=== PATIENT | male | born 1955 | race Caucasian/White ===

== ENCOUNTER 2023-12-02 15:27 | Observation (INO) | payer MEDICARE, OTHER, SELFPAY ==
[2023-12-02] VITALS (9 sets, daily range): BP systolic 123–152; BP diastolic 63–85; PULSE 67–144; RESP 17–24; TEMP 36.6–36.8; O2SAT 93–100; BMI 36.3; BMI 37.3
--- NOTE | 2023-12-02 15:24 | ECG_ITS ---
APPROVED REPORT Exam: Resting ECG HR:157 bpm ECG Measurements Heart Rate 157 AXES QRSd 121 QRS -84 QT 319 T 66 QTc 407 Conclusion ATRIAL FIBRILLATION WITH RAPID VENTRICULAR RESPONSE WITH ABERRANT CONDUCTION OR VENTRICULAR PREMATURE COMPLEXES RIGHT BUNDLE BRANCH BLOCK [120+ ms QRS DURATION, UPRIGHT V1, 40+ ms S IN I/aVL/V4/V5/V6] POSSIBLE ANTERIOR MYOCARDIAL INFARCTION , PROBABLY OLD [30 ms Q WAVE IN V3/V4, OR R < 0.2 mV IN V4] INFERIOR MYOCARDIAL INFARCTION , OF INDETERMINATE AGE [40+ ms Q WAVE AND/OR ST/T ABNORMALITY IN II/aVF] CRITICAL TEST RESULT UNCONFIRMED REPORT Electronically signed by : Jaren Martinez MD 12/03/2023 10:47:01
--- NOTE | 2023-12-02 15:31 | ECG_ITS ---
APPROVED REPORT Exam: Resting ECG HR:127 bpm ECG Measurements Heart Rate 127 AXES QRSd 132 QRS -85 QT 363 T 70 QTc 438 Conclusion ATRIAL FIBRILLATION WITH RAPID VENTRICULAR RESPONSE WITH ABERRANT CONDUCTION OR VENTRICULAR PREMATURE COMPLEXES RIGHT BUNDLE BRANCH BLOCK [120+ ms QRS DURATION, UPRIGHT V1, 40+ ms S IN I/aVL/V4/V5/V6] POSSIBLE ANTERIOR MYOCARDIAL INFARCTION , PROBABLY OLD [30 ms Q WAVE IN V3/V4, OR R < 0.2 mV IN V4] INFERIOR MYOCARDIAL INFARCTION , OF INDETERMINATE AGE [40+ ms Q WAVE AND/OR ST/T ABNORMALITY IN II/aVF] ST DEPRESSION, CONSIDER SUBENDOCARDIAL INJURY [0.1+ mV ST DEPRESSION] ABNORMAL ECG UNCONFIRMED REPORT Electronically signed by : Jaren Martinez MD 12/03/2023 10:46:55
--- NOTE | 2023-12-02 15:33 | XR_ITS ---
FINAL REPORT CLINICAL HISTORY: palpatations COMPARISON: None FINDINGS: The heart size is normal. The mediastinum is normal. There is no focal infiltrate or edema. There are no pleural effusions. There is no pneumothorax. There is no osseous abnormality. IMPRESSION: No acute cardiopulmonary process Reviewed, Interpreted and Dictated by Westley Warren MD Transcribed by Mariajose Hameed Authenticated and . [facility]
--- NOTE | 2023-12-02 15:40 | ECG_ITS ---
APPROVED REPORT Exam: Resting ECG HR:103 bpm ECG Measurements Heart Rate 103 AXES QRSd 144 QRS -89 QT 336 T 66 QTc 396 Conclusion ATRIAL FIBRILLATION WITH RAPID VENTRICULAR RESPONSE RIGHT BUNDLE BRANCH BLOCK [120+ ms QRS DURATION, UPRIGHT V1, 40+ ms S IN I/aVL/V4/V5/V6] INFERIOR MYOCARDIAL INFARCTION , PROBABLY OLD [40+ ms Q WAVE AND/OR ST/T ABNORMALITY IN II/aVF] ABNORMAL ECG UNCONFIRMED REPORT Electronically signed by : Jaren Martinez MD 12/03/2023 10:46:50
[2023-12-02 15:43] LABS: Basophils # 0.1 K/mm3 (0-0.2); Basophils % 0.7 % (0.1-2.0); Eosinophils # 0.1 K/mm3 (0.0-0.4); Eosinophils % 0.8 % (0.1-12.0); Hematocrit 52.8 % (42.0-52.0); Hemoglobin 17.7 g/dL (14.1-18.0); Lymphocytes # 2.8 K/mm3 (0.7-4.5); Lymphocytes % 23.6 % (10-50); Mean Corpuscular HGB Conc 33.6 g/dL (31.8-35.4); Mean Corpuscular Hemoglobin 30.7 pg (27.0-31.2); Mean Corpuscular Volume 91.4 fl (80-94); Mean Platelet Volume 8.2 fl (7.4-10.4); Monocytes # 0.7 K/mm3 (0.1-1.0); Monocytes % 5.7 % (1.7-9.3); Neutrophils # 8.2 K/mm3 (1.8-7.8); Neutrophils % 69.2 % (37.0-80.0); Platelet Count 234 K/mm3 (142-424); Red Blood Count 5.78 M/mm3 (4.60-6.20); Red Cell Distribution Width 14.2 % (11.5-17.5); White Blood Count 11.9 K/mm3 (4.8-10.8)
[2023-12-02] MEDS: dilTIAZem 25MG/5ML VIAL 10 MG IV (15:43)
[2023-12-02] MEDS: ASPIRIN 81MG CHEWABLE TABLET 324 MG PO (15:43)
--- NOTE | 2023-12-02 15:43 | ED_ITS ---
Discharge Plan Disposition Patient Disposition: Admitted Condition: Good Chief Complaint: Shortness of Breath/Dyspnea Clinical Impressions Clinical Impression: New onset a-fib, Atrial fibrillation with rapid ventricular response Discharge ED Provider: Jennifer Naylor HPI General Chief Complaint: Shortness of Breath/Dyspnea Stated Complaint: CHEST TIGHTNESS Time Seen by Provider: 12/02/23 15:32 Mode of Arrival: Ambulatory Source of Information: Patient and Spouse Limitations: No Limitations History of Present Illness HPI narrative: Patient is a 68-year-old male with past medical history diabetes, GERD, hypertension presenting with shortness of breath, presyncope and feeling unce rtain . Patient states that he was out to lunch with his and they were driving back from [place] when he felt very uncomfortable and short of breath. They diverted here for continued symptoms and thought his blood pressure might be abnormal. He does have a history of 1 similar episode that self resolved and for which he never did seek medical care. He did follow-up with a supervisor of instruction who told him that he may have an irregular heartbeat and was scheduled for a stress test and echo but has not yet had them yet with Dr. Chen at [place]. He was also told that his heart rate was low and was taken off of his metoprolol and put on hydralazine instead for blood pressure. He denies any known history of A-fib and has never been told that he has A-fib and is not on any blood thinners or aspirin. He denies specifically any chest pain, abdominal pain, nausea, vomiting but did elect that he was going to pass out and walking to the stretcher. Related Data Home Medications Medication Instructions Recorded Confirmed amlodipine 10 mg tablet 10 mg PO QDAY 10/12/17 10/23/19 meloxicam 15 mg tablet 15 mg PO QDAY 10/12/17 10/23/19 metformin 500 mg tablet 500 mg PO BID 10/12/17 10/23/19 metoprolol tartrate 50 mg tablet 50 mg PO QDAY 10/12/17 10/23/19 omeprazole 40 mg capsule,delayed 40 mg PO ONCE 10/12/17 10/23/19 release simvastatin 40 mg tablet 40 mg PO QPM 10/12/17 10/23/19 cyclobenzaprine 10 mg tablet 10 mg PO 60 days 09/26/18 10/23/19 hydralazine 100 mg tablet 100 mg PO 90 days 09/26/18 10/23/19 hydrochlorothiazide 25 mg tablet 25 mg PO 90 days 09/26/18 10/23/19 oxybutynin chloride 10 mg PO 90 days #90 tabs 09/26/18 10/23/19 tablet,extended release 24 hr tolterodine 4 mg capsule,extended PO 90 days #90 caps 09/26/18 10/23/19 release 24 hr fluticasone propionate 50 1 spray intranasal DAILY 12/19/18 10/23/19 mcg/actuation nasal spray,suspension (Flonase Allergy Relief) cetirizine 10 mg tablet 10 mg PO DAILY 10/15/19 10/23/19 losartan 100 mg tablet 100 mg PO DAILY 10/15/19 10/23/19 metformin 1,000 mg tablet 1,000 mg PO DAILY 10/15/19 10/23/19 montelukast 10 mg tablet 10 mg PO DAILY 10/15/19 10/23/19 Previous Rx's Medication Instructions Recorded benzonatate 200 mg capsule 200 mg PO TID PRN cough #20 caps 10/15/19 amoxicillin 500 mg capsule 500 mg PO Q12H sinusitis and 10/23/19 otitis media 10 days #20 caps Allergies Allergy/AdvReac Type Severity Reaction Status Date / Time lisinopril Allergy Mild cough Verified 10/23/19 13:00 codeine [CODEINE] Allergy Unknown Verified 10/23/19 12:54 [facility] Disclaimer: The information contained in this section may have been updated after the patient was seen, as this information can be updated by other users. Social History Smoking Status: Never smoker alcohol intake: current substance use type: denies use current occupational status: retired Travel in the last 8 weeks: None ROS Obtained: Yes All systems reviewed & no additional complaints except as documented Physical Exam General General appearance: alert and in no apparent distress Head Head exam: atraumatic and normocephalic Eye Eye exam: Present PERRL and EOMI ENT ENT exam: Present mucous membranes moist Chest Chest inspection: Present normal inspection and symmetric chest wall rise Respiratory Respiratory exam: Present normal lung sounds bilaterally; Absent respiratory distress Cardiovascular Cardiovascular exam: Present tachycardia, irregular rhythm and other (2+ distal pulses) Abdominal Exam Abdominal exam: Present soft; Absent tenderness Extremities Exam Extremities exam: Present normal inspection Neurological Exam Neurological exam: Present alert and oriented X3 Psychiatric Psychiatric exam: Present normal affect Skin Skin exam: Present warm and dry HEART Score HEART Score HEART Score assessment performed?: Yes HEART Score: 6 Critical Care Critical Care Time Critical Care Time: No Medical Decision Making Medical Records Medical records reviewed: Yes I reviewed the patient's medical records. Orestes Inquiry Pt receiving controlled substance: No Vital Signs Vital Signs: 12/02/23 15:28 12/02/23 16:00 12/02/23 16:30 Temperature 97.9 F Temperature Source Oral Pulse Rate 91 H 87 Pulse Rate [Left] 144 H Respiratory Rate 20 24 17 Blood Pressure 140/70 123/72 Blood Pressure [Right Arm] 133/68 Blood Pressure Mean [Right Arm] 89 Blood Pressure Source [Right Arm] Automatic Cuff 02 Sat by Pulse Oximetry 96 96 95 Oxygen Delivery Method Room Air Room Air Room Air Lab Data Lab results reviewed: Yes I reviewed the patient's lab results. Labs: Lab Results 12/02/23 15:25: WBC 11.9 H, RBC 5.78, Hgb 17.7, Hct 52.8 H, MCV 91.4, MCH 30.7, MCHC 33.6, RDW 14.2, Plt Count 234, MPV 8.2, Neut % (Auto) 69.2, Lymph % (Auto) 23.6, [place] % (Auto) 5.7, Eos % (Auto) 0.8, Baso % (Auto) 0.7, Neut # (Auto) 8.2 H, Lymph # (Auto) 2.8, [place] # (Auto) 0.7, Eos # (Auto) 0.1, Baso # (Auto) 0.1, Sodium 139, Potassium 3.3 L, Chloride 108 H, Carbon Dioxide 21 L, Anion Gap 13.3, BUN 12, Creatinine 1.20, Estimated GFR 60, Est GFR ( Amer) 72, Glucose 281 H, Calcium 9.2, Total Bilirubin 1.2, AST 32, ALT 31, Alkaline Phosphatase 74, Troponin I < 0.01, Total Protein 7.1, Albumin 4.7, Globulin 2.4, Albumin/Globulin Ratio 2.0 H 12/02/23 15:25 12/02/23 15:25 Response Orders (Tests/Meds): ED MEDICATIONS Generic Name Dose Route Start Last Admin Trade Name Freq PRN Reason Stop Dose Admin Diltiazem HCl 60 mg 12/02/23 16:45 Diltiazem 30mg Tablet PO 01/01/24 16:44 Q8H JOSEY Enoxaparin Sodium 125 mg 12/02/23 16:45 Enoxaparin 100mg/Ml Syringe 1 mg/kg (125 mg) 01/01/24 16:44 SQ Q12H JOSEY Sodium Chloride 10 ml 12/02/23 15:33 Sodium Chloride 0.9% 10ml Flush Syringe IV 01/01/24 15:32 NEEDED PRN Maintain IV Site Discontinued Medications Generic Name Dose Route Start Last Admin Trade Name Freq PRN Reason Stop Dose Admin Aspirin 324 mg 12/02/23 15:33 12/02/23 15:43 Aspirin 81mg Chewable Tablet PO 12/02/23 15:34 324 mg ONCE ONE Administration Diltiazem HCl 10 mg 12/02/23 15:33 12/02/23 15:43 Diltiazem 25mg/5ml Vial IV 12/02/23 15:34 10 mg ONCE ONE Administration ORDERS Category Date Time Status Cardiology Consult [Consult to Cardiology] [CONS] Cons 12/02/23 16:45 Active Routine XR chest portable Stat Exams 12/02/23 15:33 Completed Complete Blood Count Auto Diff AMLAB Lab 12/03/23 06:00 Ordered Complete Blood Count Auto Diff Stat Lab 12/02/23 15:25 Completed Comprehensive Metabolic Panel AMLAB Lab 12/03/23 06:00 Ordered Comprehensive Metabolic Panel Stat Lab 12/02/23 15:25 Completed Lipid Panel AMLAB Lab 12/03/23 06:00 Ordered Magnesium AMLAB Lab 12/03/23 06:00 Ordered Troponin I Q3H Lab 12/02/23 18:45 Ordered Troponin I Q3H Lab 12/02/23 21:45 Ordered Troponin I Stat Lab 12/02/23 15:25 Completed ECG initial Besson Routine Y 12/02/23 15:24 Completed ECG repeat same Besson Routine Y 12/02/23 15:31 Completed MDM Narrative Medical Decision Narrative: Patient is a 68-year-old male with past medical history diabetes, hypertension, reportedly being worked up for cardiac abnormality presenting with feeling uncomfortable and presyncopal as well as short of breath. Patient on arrival does appear uncomfortable and was noted to be presyncopal when he was ambulating to the stretcher that he did not pass out. He has GCS 15 on arrival but notably tachycardic in the 150s but otherwise hemodynamically stable. We did an EKG at bedside showing a heart rate of 157 and concern for A-fib with RVR he does have a right bundle branch block and there was concern for possible ST depression on the EKG and was sent to Dr. Walls who states that it does not appear consistent with a STEMI. Proceeded with repeat EKG as rate seems to be changing and repeat EKG showing rate of 127 with continued A-fib with RVR, right bundle branch block and occasional PVC without acute ST change and was comparable to prior. I did give 10 of Cardizem given patient's symptoms and acute tachycardia and given that he was otherwise hemodynamically stable especially considering his history of possible irregular heartbeat in the past and he is not on anticoagulation. He did have improvement in his cardiac rate on the third EKG with a rate of 103, continues to have A-fib with occasional PVC and right bundle branch block without acute ischemia or infarction noted. Will obtain labs and imaging for further evaluation. CBC and CMP were nonactionable, troponin negative. EKG did show improvement in rate control but he continues to fluctuate between the 80s to 90s to low 100s. I am concerned that this was an acute cardiac event that started just prior to arrival and with new onset A-fib and I did speak with was agreeable with admission at this time.
[2023-12-02 15:46] LABS: Chloride 108 mmol/L (98-107); Potassium 3.3 mmoL/L (3.5-5.1); Sodium 139 mmol/L (136-145)
[2023-12-02 15:49] LABS: Alanine Aminotransferase 31 U/L (12-78); Albumin Level 4.7 g/dl (3.5-5.0); Alkaline Phosphatase 74 U/L (38-126); Anion Gap 13.3 mEq/L (5-15); Aspartate Amino Transferase 32 U/L (17-59); Bilirubin,Total 1.2 mg/dl (0.2-1.3); Blood Urea Nitrogen 12 mg/dl (9-20); Carbon Dioxide 21 mmol/L (22.0-30.0); Estimated Glomerular Filt Rate 60 ml/min (>60); GFR (African American) 72 ML/MIN (>60); Globulin 2.4 g/dL (1.3-3.2); Total Protein,Serum 7.1 g/dl (6.3-8.2)
[2023-12-02 15:50] LABS: Calcium 9.2 mg/dl (8.4-10.2); Glucose 281 mg/dl (74-100)
[2023-12-02 16:02] LABS: Troponin I < 0.01 ng/ml (0.00-0.034)
--- NOTE | 2023-12-02 16:45 | PC.NURSE ---
speaking with hospitalist
--- NOTE | 2023-12-02 16:51 | PC.NURSE ---
House aware of admission for new onset of A-fib with RVR
--- NOTE | 2023-12-02 17:24 | PC.NURSE ---
Attempted to call report nurse states they will call back.
--- NOTE | 2023-12-02 17:37 | PC.NURSE ---
Report called to KALPESH Lopez
--- NOTE | 2023-12-02 17:42 | PC.NURSE ---
rounded on pt let him know we have a room number, nurse just needed to call report and we would get him to his room shortly and call light at bs
[2023-12-02 17:56] LABS: Hemoglobin A1C 6.4 % (4.0-6.0)
[2023-12-02] MEDS: ENOXAPARIN 100MG/ML SYRINGE 125 MG SQ (18:05)
[2023-12-02] MEDS: dilTIAZem 30MG TABLET 60 MG PO (18:06)
[2023-12-02 18:19] LABS: Thyroid Stimulating Hormone 1.92 uIU/mL (0.465-4.68)
--- NOTE | 2023-12-02 18:23 | PC.NURSE ---
Pt. to the floor vss, no pain at this time, aox 4, upadlib, reports no recent falls, lungs are clear, bs x 4, 20G R AC, on tele and cpox.
--- NOTE | 2023-12-02 19:29 | P.HP_ITS ---
History of Present Illness *Admission Date: 12/02/23 *Reason for visit:: Chest thighness *History of present illness: This is a 68-year-old obese male with PMHx of NIDDM, GERD, hypertension, HLD presented to ED with shortness of breath and chest discomfort, with presyncope symptoms. Patient stated that he was having a normal day and when driving back home he felt very uncomfortable and short of breath. Thought his blood pressure might be abnormal, therefore decided to come to ED. He does have a history of 1 similar episode that self resolved and for which he never did seek medical care. Patient has been followed by his perianesthesia manager, Dr. Chen at [place]; who told him that he may have an irregular heartbeat and was scheduled for a stress test and echo that still pending. He was recently taken off of his metoprolol, due to low heart rate and put on hydralazine instead for blood pressure. He denies any known history of A-fib and has never been told that he has A-fib and is not on any blood thinners or aspirin. He denies specifically any chest pain, abdominal pain, nausea, vomiting. Admitted for management and treatment. [facility] Disclaimer: The information contained in this section may have been updated after the patient was seen, as this information can be updated by other users. Medical History History of left heart catheterization (LHC) Hyperlipidemia Hypertension Surgical History H/O vasectomy H/O wrist replacement History of colonoscopy History of tonsillectomy Family History Other No significant family history Social History Smoking Status: Never smoker alcohol intake: current substance use type: denies use current occupational status: retired Travel in the last 8 weeks: None Review of Systems Review of Systems Review of systems:: pertinent systems reviewed and negative unless documented below Meds Home Medications and Allergies Home Medications Medication Instructions Recorded Confirmed Type omeprazole 40 mg capsule,delayed 40 mg PO DAILY Acid Reflux 10/12/17 12/03/23 History release simvastatin 40 mg tablet 40 mg PO HS Cholesterol 10/12/17 12/03/23 History oxybutynin chloride 10 mg 10 mg PO DAILY 90 days #90 tabs 09/26/18 12/03/23 History tablet,extended release 24 hr metformin 1,000 mg tablet 1,000 mg PO BID Diabetes 10/15/19 12/03/23 History citalopram 20 mg tablet 20 mg PO DAILY Mood 12/02/23 12/03/23 History fluticasone furoate 27.5 1 spray intranasal DAILY Allergy 12/02/23 12/03/23 History mcg/actuation nasal Symptoms spray,suspension (Flonase Sensimist) furosemide 40 mg tablet 40 mg PO DAILY Fluid 12/02/23 12/03/23 History levocetirizine 5 mg tablet 5 mg PO DAILY Allergy Symptoms 12/02/23 12/03/23 History montelukast 10 mg tablet 10 mg PO PM Allergy Symptoms 12/02/23 12/03/23 History topiramate 50 mg tablet 50 mg PO BID Migraines 12/02/23 12/03/23 History diltiazem HCl 180 mg 180 mg PO DAILY 30 days #30 caps 12/03/23 Rx capsule,extended release 24 hr losartan 100 mg tablet 50 mg PO HS High Blood Pressure 30 12/03/23 12/03/23 Rx days #0 tabs rivaroxaban 20 mg tablet 20 mg PO HS 30 days #30 tabs 12/03/23 Rx New Prescriptions to Start Prescriptions: diltiazem HCl Ousmane Gutierrez rivaroxaban Ousmane Gutierrez Allergies Allergy/AdvReac Type Severity Reaction Status Date / Time codeine [CODEINE] Allergy Unknown Verified 12/02/23 18:26 lisinopril AdvReac Mild cough Verified 12/02/23 22:16 Exam Data for Last 24 hours Vital signs and Labs for Last 24 Hours: Temp Pulse Resp BP Pulse Ox O2 Del Method O2 Flow Rate 98.2 F 67 18 150/66 H 100 Room Air 2 12/02/23 18:06 12/02/23 18:06 12/02/23 18:06 12/02/23 18:06 12/02/23 18:06 12/02/23 18:06 12/02/23 17:58 Laboratory Results - last 24 hr 12/02/23 15:25: WBC 11.9 H, RBC 5.78, Hgb 17.7, Hct 52.8 H, MCV 91.4, MCH 30.7, MCHC 33.6, RDW 14.2, Plt Count 234, MPV 8.2, Neut % (Auto) 69.2, Lymph % (Auto) 23.6, [place] % (Auto) 5.7, Eos % (Auto) 0.8, Baso % (Auto) 0.7, Neut # (Auto) 8.2 H, Lymph # (Auto) 2.8, [place] # (Auto) 0.7, Eos # (Auto) 0.1, Baso # (Auto) 0.1, Sodium 139, Potassium 3.3 L, Chloride 108 H, Carbon Dioxide 21 L, Anion Gap 13.3, BUN 12, Creatinine 1.20, Estimated GFR 60, Est GFR ( Amer) 72, Glucose 281 H, Hemoglobin A1c 6.4 H, Calcium 9.2, Total Bilirubin 1.2, AST 32, ALT 31, Alkaline Phosphatase 74, Troponin I < 0.01, Total Protein 7.1, Albumin 4.7, Globulin 2.4, Albumin/Globulin Ratio 2.0 H, TSH 1.92 I & O for Last 24 hours: Intake & Output 11/29/23 11/30/23 12/01/23 12/02/23 23:59 23:59 23:59 23:59 Weight 128.593 kg Constitutional Constitutional: mild distress, obese and cooperative *Routine HEENT Exam Head: Present normocephalic and atraumatic Eye: Present EOMI, PERRL and normal accommodation ENT: Present mucous membranes moist *Routine Neck Exam Neck: Present supple, full ROM and trachea midline *Routine Respiratory Exam Respiratory: Present CTA bilaterally, normal respiratory effort and symmetric chest movement; Absent respiratory distress *Routine Cardiovascular Exam Cardiovascular: Present Normal S1, Normal S2, tachycardia and irregularly irregular *Routine Abdominal Exam Abdominal: Present soft, normoactive bowel sounds and obese; Absent tenderness or organomegaly *Routine Rectal Exam Rectal:: deferred *Routine Genitalia Exam Genitalia:: deferred *Routine Extremities Exam Extremities: Present full ROM and pulses intact; Absent cyanosis, clubbing or edema *Routine Skin Exam Skin: Present intact, dry and warm; Absent rash *Routine Neurological Exam Neurological: Present alert, oriented X3, normal reflexes, moving all extremities and normal speech Routine Psychiatric Exam Psychiatric: Present cooperative, good insight and good judgment H&P: Result Imaging and Cardiology EKG: Status: image reviewed by me and Preliminary report Chest x-ray: Status: image reviewed by me, Preliminary report and final report Assessment and Plan *Assessment and plan (1) New onset a-fib: Status: Acute Category: Medical Code(s): I48.91 - Unspecified atrial fibrillation (2) Atrial fibrillation with rapid ventricular response: Status: Acute Category: Medical Code(s): I48.91 - Unspecified atrial fibrillation (3) Hypertension: Status: Acute Qualifiers: Hypertension type: unspecified Qualified Code(s): I10 - Essential (primary) hypertension Category: Medical Code(s): I10 - Essential (primary) hypertension (4) Hyperlipidemia: Status: Acute Qualifiers: Hyperlipidemia type: unspecified Qualified Code(s): E78.5 - Hyperlipidemia, unspecified Category: Medical Code(s): E78.5 - Hyperlipidemia, unspecified (5) Diabetes mellitus: Status: Acute Qualifiers: Diabetes mellitus complication status: with other specified complication Diabetes mellitus terminal operations manager insulin use: without prison use Diabetes mellitus type: type 2 Qualified Code(s): E11.69 - Type 2 diabetes mellitus with other specified complication Category: Medical Code(s): E11.9 - Type 2 diabetes mellitus without complications (6) Obesity: Status: Acute Qualifiers: Body mass index: BMI 37.0-37.9 Obesity classification: adult class 2 (BMI 35 - 39.9) Obesity type: unspecified obesity type Serious obesity comorbidity presence: unspecified whether serious comorbidity present Qualified Code(s): E66.9 - Obesity, unspecified; Z68.37 - Body mass index [BMI] 37.0- 37.9, adult Category: Medical Code(s): E66.9 - Obesity, unspecified Plan 68-year-old obese male with PMHx of NIDDM, GERD, hypertension, HLD presented to ED with shortness of breath and chest discomfort, with presyncope symptoms. On arrival, patient presented with tachycardia, atrial fibrillation. Heart rate in the 150s'. IV Cardizem push given. EKG does not show any ST changes. There was a concern for right bundle block. Labs are grossly unremarkable, troponins are negative. patient was able to control his heart rate, but continue on atrial fibrillation. Case discussed with cardiology and ER for admission. Plan as follow -New onset A-fib with RVR: Admitted for cardiac telemetry. Cardiology consult. Keep n.p.o. after midnight for possible cardiac intervention Started on Cardizem extended release. Initial dose 120 mg p.o. Continue with 60 twice daily Monitor heart rate and rhythm Monitor for chest pain Serial troponin. They are negative Repeat labs in the morning Aspirin 324 mg given at the ER. Continue with 81 mg daily -Hypertension hyperlipidemia: Patient on several medication for hypertension. Including hydralazine 50 mg twice a day Amlodipine 10 mg once a day losartan 100 mg once a day Furosemide 40 mg once a day Will are going to hold blood pressure medications, for review and reconsideration. On simvastatin -Diabetes type 2 [id number]. Hold metformin Accu-Chek before meals Insulin scale for support -History of obesity: Will increase cardiac risk score. Educated on weight management On Lovenox full dose. On Protonix for GI bleed protection and GERD Full code Rounded on patient after nurse practitioner. Personally examined and interviewed patient. Agree with exam findings and care plan as documented.
[2023-12-02 20:24] LABS: Troponin I < 0.01 ng/ml (0.00-0.034)
[2023-12-02] MEDS: OXYBUTYNIN 5MG TAB 5 MG PO (20:35)
[2023-12-02] MEDS: ACETAMINOPHEN 325MG TAB 650 MG PO (20:35)
[2023-12-02 20:45] LABS: POC Glucose,Bedside 139 (70-110)
[2023-12-02 22:18] LABS: Troponin I < 0.01 ng/ml (0.00-0.034)
[2023-12-03] VITALS: BP 96/59; PULSE 62; PULSE 68; RESP 20; TEMP 36.4; O2SAT 97
[2023-12-03] MEDS: dilTIAZem 30MG TABLET 60 MG PO (01:01)
[2023-12-03 04:00] VITALS: BP 154/88; PULSE 67; RESP 16; TEMP 36.6; O2SAT 93; BMI 37.2
[2023-12-03 05:00] VITALS: PULSE 70
[2023-12-03] MEDS: ENOXAPARIN 100MG/ML SYRINGE 125 MG SQ (05:05)
[2023-12-03 05:59] LABS: POC Glucose,Bedside 136 (70-110)
[2023-12-03] MEDS: POTASSIUM CHLORIDE 20MEQ TAB 40 MEQ PO ×2 (05:59→08:39)
--- NOTE | 2023-12-03 06:00 | CA_ITS ---
APPROVED REPORT EXAM: Comprehensive 2D, Doppler, and color-flow Echocardiogram Corn Cutter Operator: Merlyn Jones RDCS Ht: 6 ft 1 in Wt: 275lbs BSA: 2.46 BP: 150/66 mmHg Indications: CP,AF,HTN,HLP.DM,SOA M-Mode Dimensions RVDd 4.15 cm (0.9-2.6) LA Diam 4.51 cm (1.9-4.0) LVDd 6.83 cm (3.5-5.7) LVDs 5.22 cm (3.5-5.7) IVSd 1.29 cm (0.6-1.1) PWd 0.80 cm (0.6-1.1) EF (Teich) 45.90% FS 23.60% EDV (Teich) 241.60 mL ESV (Teich) 130.70 mL LV Diastology E Decel Time 280 (160-240 msec) E/A Ratio 0.6 Mitral Valve MV E Max Shaheen. 54.0 (40-130 cm/s) MV A Velocity 84.0 (40-130 cm/s) E/A Ratio 0.64 MV PHT 82.0 ms Left Ventricle The left ventricle is normal size. The left ventricular systolic function is normal. The left ventricular ejection fraction is within the normal range. There is increased LV wall thickness. There is normal LV segmental wall motion. Transmitral Doppler flow pattern suggests impaired LV relaxation. LVEF is 55%. Right Ventricle The right ventricle is normal size. The right ventricular systolic function is normal. Atria The left atrium size is normal. The right atrium size is normal. There is no Doppler evidence of interatrial shunt. Aortic Valve The aortic valve opens well. There is no aortic valvular stenosis. No aortic regurgitation is present. Mitral Valve The mitral valve is normal in structure. No evidence of mitral valve stenosis. Trace mitral regurgitation. Tricuspid Valve The tricuspid valve leaflets are thin and pliable. Trace tricuspid regurgitation. There is insufficient TR jet to estimate RVSP. Pulmonic Valve The pulmonary valve is normal in structure. Trace pulmonic regurgitation. Great Vessels The aortic root is normal in size. The ascending aorta is not well visualized. IVC is normal in size and collapses >50% with inspiration. Pericardium There is no pericardial effusion. Other Information Study Quality: Fair Conclusion Normal biventricular systolic function. No significant valvular stenosis or regurgitation. Electronically signed by : Kayla Thompson MD 12/05/2023 17:57:23
--- NOTE | 2023-12-03 06:36 | PC.NURSE ---
pt has worn 1LNC PRN t/o night r/t O2 88/89%. NPO since midnight. no acute changes.
[2023-12-03 06:54] LABS: Basophils % 0.5 % (0.1-2.0); Eosinophils # 0.1 K/mm3 (0.0-0.4); Eosinophils % 1.2 % (0.1-12.0); Hematocrit 44.7 % (42.0-52.0); Lymphocytes # 2.7 K/mm3 (0.7-4.5); Lymphocytes % 34.1 % (10-50); Mean Corpuscular HGB Conc 34.1 g/dL (31.8-35.4); Mean Corpuscular Hemoglobin 31.6 pg (27.0-31.2); Mean Corpuscular Volume 92.8 fl (80-94); Mean Platelet Volume 7.9 fl (7.4-10.4); Monocytes # 0.4 K/mm3 (0.1-1.0); Monocytes % 5.2 % (1.7-9.3); Neutrophils # 4.6 K/mm3 (1.8-7.8); Platelet Count 172 K/mm3 (142-424); Red Blood Count 4.82 M/mm3 (4.60-6.20); White Blood Count 7.8 K/mm3 (4.8-10.8)
[2023-12-03 06:57] LABS: Chloride 111 mmol/L (98-107)
[2023-12-03 06:58] LABS: Potassium 3.2 mmoL/L (3.5-5.1)
[2023-12-03 07:00] LABS: Alanine Aminotransferase 18 U/L (12-78); Aspartate Amino Transferase 21 U/L (17-59); Blood Urea Nitrogen 14 mg/dl (9-20); Creatinine Clearance Estimated 113 mL/min (50-200); Estimated Glomerular Filt Rate 66 ml/min (>60); GFR (African American) 80 ML/MIN (>60)
[2023-12-03 07:01] LABS: Albumin Level 3.6 g/dl (3.5-5.0); Albumin/Globulin Ratio 1.6 (1.1-1.8); Alkaline Phosphatase 66 U/L (38-126); Anion Gap 5.2 mEq/L (5-15); Calcium 8.6 mg/dl (8.4-10.2); Carbon Dioxide 27 mmol/L (22.0-30.0); Chol/HDL Ratio 4.4 (1-3.5); Cholesterol 97 mg/dl (140-200); Globulin 2.2 g/dL (1.3-3.2); Glucose 131 mg/dl (74-100); HDL Cholesterol 22 mg/dl (40-60); Magnesium 1.6 mg/dl (1.6-2.3); Sodium 140 mmol/L (136-145); Total Protein,Serum 5.8 g/dl (6.3-8.2); Triglycerides 124 mg/dl (30-150); VLDL Cholesterol 25 mg/dL (0-40)
[2023-12-03 07:04] LABS: Hemoglobin 15.2 g/dL (14.1-18.0)
[2023-12-03 07:18] LABS: Direct LDL Cholesterol 61.51 mg/dL (100-129)
--- NOTE | 2023-12-03 07:46 | HMH.PHAINT1 ---
Pharmacy Intervention Comments: MEDICATION RECONCILIATION COMPLETED ON PATIENT USING EXTERNAL FILL HISTORY FROM PHARMACY. -CATALINA WILSON, SELIND
[2023-12-03 08:00] VITALS: BP 122/63; PULSE 65; PULSE 70; RESP 22; TEMP 36.5; O2SAT 97
[2023-12-03] MEDS: dilTIAZem HCL 180MG CAP.ER.24H 180 MG PO (08:39)
[2023-12-03] MEDS: ASPIRIN EC 81MG TABLET 81 MG PO (08:39)
[2023-12-03] MEDS: LORATADINE 10MG TABLET 10 MG PO (08:39)
[2023-12-03] MEDS: TOPIRAMATE 25MG TABLET 50 MG PO (08:39)
[2023-12-03] MEDS: OXYBUTYNIN 5MG TAB 5 MG PO (08:39)
[2023-12-03] MEDS: CITALOPRAM 20MG TABLET 20 MG PO (08:39)
[2023-12-03] MEDS: FUROSEMIDE 40 MG TABLET PO (08:39)
--- NOTE | 2023-12-03 09:51 | ECG_ITS ---
APPROVED REPORT Exam: Resting ECG HR:63 bpm ECG Measurements Heart Rate 63 AXES QRSd 133 QRS -58 QT 486 T -18 QTc 494 Conclusion ATRIAL FIBRILLATION RIGHT BUNDLE BRANCH BLOCK [120+ ms QRS DURATION, UPRIGHT V1, 40+ ms S IN I/aVL/V4/V5/V6] LEFT ANTERIOR FASCICULAR BLOCK [QRS AXIS <= -45, QR IN I, RS IN II] INFERIOR MYOCARDIAL INFARCTION , PROBABLY OLD [40+ ms Q WAVE AND/OR ST/T ABNORMALITY IN II/aVF] MODERATE T-WAVE ABNORMALITY, CONSIDER LATERAL ISCHEMIA [-0.1+ mV T-WAVE IN I/aVL/V5/V6] ABNORMAL ECG UNCONFIRMED REPORT Electronically signed by : Jaren Martinez MD 12/04/2023 12:38:08
[2023-12-03 10:49] LABS: POC Glucose,Bedside 145 (70-110)
[2023-12-03 12:00] VITALS: BP 119/60; PULSE 65; RESP 20; TEMP 36.4; O2SAT 92
--- NOTE | 2023-12-03 12:00 | P.CONCA_ITS ---
History of Present Illness History of Present Illness Consult date: 12/03/23 Requesting physician: Ousmane Gutierrez Consult reason: atrial fibrillation Chief complaint: Chest pain palpitations History of present illness: 68-year-old white male without known cardiovascular disease but risk factors including BMI 37, obstructive sleep apnea, hypertension, obesity, high cholesterol, diabetes. Recently evaluated by a print finishing worker in [place] for dyspnea on exertion and palpitations with near syncope. He has stress test and echo pending. That print finishing worker also discontinued beta-blockers due to asymptomatic heart rate in the 40s. Yesterday patient reports gradual onset worsening significant chest discomfort with fluttering sensation in his chest associated with near syncope. In the ER he was found to be in A-fib RVR with heart rate 150s. He was admitted and started on diltiazem and his rate controlled this morning and completely asymptomatic. EKG shows sinus rhythm without ischemic changes, he has normal serial troponins. [facility] Disclaimer: The information contained in this section may have been updated after the patient was seen, as this information can be updated by other users. Medical History History of left heart catheterization (LHC) Hyperlipidemia Hypertension Surgical History H/O vasectomy H/O wrist replacement History of colonoscopy History of tonsillectomy Family History Other No significant family history Social History Smoking Status: Never smoker alcohol intake: current substance use type: denies use current occupational status: retired Travel in the last 8 weeks: None Review of Systems Constitutional Constitutional: Denies fatigue and Denies weakness Eyes Eyes: Denies loss of vision ENT Ears, Nose, Mouth, and Throat: Denies hearing loss and Denies vertigo *Cardiovascular Cardiovascular: Reports chest pain, Denies dyspnea, Reports palpitations and Denies syncope *Respiratory Respiratory: Denies cough and Denies dyspnea *Gastrointestinal Gastrointestinal: Denies change in stool character, Denies nausea and Denies vomiting *Genitourinary Genitourinary: Denies difficulty urinating *Musculoskeletal Musculoskeletal: Denies muscle weakness Integumentary/Breasts Skin/Breast: Denies changing lesions *Neurologic Neurologic: Denies loss of vision, Denies syncope, Denies vertigo and Denies weakness Endocrine Endocrine: Denies fatigue and Reports palpitations Exam Data for Last 24 hours Vital signs and Labs for Last 24 Hours: Temp Pulse Resp BP Pulse Ox O2 Del Method O2 Flow Rate 97.7 F 65 22 122/63 97 Nasal Cannula 1 12/03/23 08:00 12/03/23 08:00 12/03/23 08:00 12/03/23 08:00 12/03/23 08:00 12/03/23 10:15 12/03/23 10:15 Laboratory Results - last 24 hr 12/02/23 15:25: WBC 11.9 H, RBC 5.78, Hgb 17.7, Hct 52.8 H, MCV 91.4, MCH 30.7, MCHC 33.6, RDW 14.2, Plt Count 234, MPV 8.2, Neut % (Auto) 69.2, Lymph % (Auto) 23.6, [place] % (Auto) 5.7, Eos % (Auto) 0.8, Baso % (Auto) 0.7, Neut # (Auto) 8.2 H, Lymph # (Auto) 2.8, [place] # (Auto) 0.7, Eos # (Auto) 0.1, Baso # (Auto) 0.1, Sodium 139, Potassium 3.3 L, Chloride 108 H, Carbon Dioxide 21 L, Anion Gap 13.3, BUN 12, Creatinine 1.20, Estimated GFR 60, Est GFR ( Amer) 72, Glucose 281 H, Hemoglobin A1c 6.4 H, Calcium 9.2, Total Bilirubin 1.2, AST 32, ALT 31, Alkaline Phosphatase 74, Troponin I < 0.01, Total Protein 7.1, Albumin 4.7, Globulin 2.4, Albumin/Globulin Ratio 2.0 H, TSH 1.92 12/02/23 18:57: Troponin I < 0.01 12/02/23 20:33: POC Glucose 139 H 12/02/23 20:40: Troponin I < 0.01 12/03/23 04:56: POC Glucose 136 H 12/03/23 06:13: WBC 7.8 D, RBC 4.82, Hgb 15.2 D, Hct 44.7, MCV 92.8, MCH 31.6 H, MCHC 34.1, RDW 14.0, Plt Count 172 D, MPV 7.9, Neut % (Auto) 59.0, Lymph % (Auto) 34.1, [place] % (Auto) 5.2, Eos % (Auto) 1.2, Baso % (Auto) 0.5, Neut # (Auto) 4.6, Lymph # (Auto) 2.7, [place] # (Auto) 0.4, Eos # (Auto) 0.1, Baso # (Auto) 0.0, Sodium 140, Potassium 3.2 L, Chloride 111 H, Carbon Dioxide 27, Anion Gap 5.2, BUN 14, Creatinine 1.10, Estimated Creat Clear 113, Estimated GFR 66, Est GFR ( Amer) 80, Glucose 131 H D, Calcium 8.6, Magnesium 1.6, Total Bilirubin 1.0, AST 21 D, ALT 18 D, Alkaline Phosphatase 66, Total Protein 5.8 L, Albumin 3.6 D, Globulin 2.2, Albumin/Globulin Ratio 1.6, Triglycerides 124, Cholesterol 97 L, LDL Cholesterol Direct 61.51 L, VLDL Cholesterol 25, HDL Cholesterol 22 L, Cholesterol/HDL Ratio 4.4 H 12/03/23 10:42: POC Glucose 145 H I & O for Last 24 hours: Intake & Output 11/30/23 12/01/23 12/02/23 12/03/23 23:59 23:59 23:59 23:59 Intake Total 120 / 120 Output Total 0 / 0 Balance 120 / 120 Weight 283 lb 8 oz 280 lb 11.2 oz Constitutional Constitutional: no acute distress, obese and cooperative *Routine HEENT Exam Eye: Present PERRL *Routine Respiratory Exam Respiratory: Present CTA bilaterally; Absent accessory muscle use, wheezes or crackles *Routine Cardiovascular Exam Cardiovascular: Present RRR, Normal S1 and Normal S2; Absent murmur, gallop or rubs *Routine Abdominal Exam Abdominal: Present soft; Absent tenderness *Routine Extremities Exam Extremities: Present pulses intact; Absent cyanosis or edema *Routine Skin Exam Skin: Present intact; Absent erythema or wounds *Routine Neurological Exam Neurological: Present alert and oriented X3 Routine Psychiatric Exam Psychiatric: Present cooperative Meds Home Medications and Allergies Home Medications Medication Instructions Recorded Confirmed Type amlodipine 10 mg tablet 10 mg PO DAILY High Blood Pressure 10/12/17 12/03/23 History omeprazole 40 mg capsule,delayed 40 mg PO DAILY Acid Reflux 10/12/17 12/03/23 History release simvastatin 40 mg tablet 40 mg PO HS Cholesterol 10/12/17 12/03/23 History oxybutynin chloride 10 mg 10 mg PO DAILY 90 days #90 tabs 09/26/18 12/03/23 History tablet,extended release 24 hr losartan 100 mg tablet 100 mg PO HS High Blood Pressure 10/15/19 12/03/23 History metformin 1,000 mg tablet 1,000 mg PO BID Diabetes 10/15/19 12/03/23 History citalopram 20 mg tablet 20 mg PO DAILY Mood 12/02/23 12/03/23 History fluticasone furoate 27.5 1 spray intranasal DAILY Allergy 12/02/23 12/03/23 History mcg/actuation nasal Symptoms spray,suspension (Flonase Sensimist) furosemide 40 mg tablet 40 mg PO DAILY Fluid 12/02/23 12/03/23 History levocetirizine 5 mg tablet 5 mg PO DAILY Allergy Symptoms 12/02/23 12/03/23 History montelukast 10 mg tablet 10 mg PO PM Allergy Symptoms 12/02/23 12/03/23 History topiramate 50 mg tablet 50 mg PO BID Migraines 12/02/23 12/03/23 History hydralazine 50 mg tablet 50 mg PO BID High Blood Pressure 12/03/23 12/03/23 History New Prescriptions to Start Prescriptions: Allergies Allergy/AdvReac Type Severity Reaction Status Date / Time codeine [CODEINE] Allergy Unknown Verified 12/02/23 18:26 lisinopril AdvReac Mild cough Verified 12/02/23 22:16 Assessment and Plan *Assessment and plan (1) New onset a-fib: Status: Acute Category: Medical Code(s): I48.91 - Unspecified atrial fibrillation (2) Atrial fibrillation with rapid ventricular response: Status: Acute Category: Medical Code(s): I48.91 - Unspecified atrial fibrillation (3) Hypertension: Status: Acute Qualifiers: Hypertension type: unspecified Qualified Code(s): I10 - Essential (primary) hypertension Category: Medical Code(s): I10 - Essential (primary) hypertension (4) Hyperlipidemia: Status: Acute Qualifiers: Hyperlipidemia type: unspecified Qualified Code(s): E78.5 - Hyperlipidemia, unspecified Category: Medical Code(s): E78.5 - Hyperlipidemia, unspecified (5) Diabetes mellitus: Status: Acute Qualifiers: Diabetes mellitus type: type 2 Diabetes mellitus mcc insulin use: without buttermaker use Diabetes mellitus complication status: with other specified complication Qualified Code(s): E11.69 - Type 2 diabetes mellitus with other specified complication Category: Medical Code(s): E11.9 - Type 2 diabetes mellitus without complications (6) Obesity: Status: Acute Qualifiers: Obesity type: unspecified obesity type Obesity classification: adult class 2 (BMI 35 - 39.9) Serious obesity comorbidity presence: unspecified whether serious comorbidity present Body mass index: BMI 37.0-37.9 Qualified Code(s): E66.9 - Obesity, unspecified; Z68.37 - Body mass index [BMI] 37.0-37.9, adult Category: Medical Code(s): E66.9 - Obesity, unspecified Plan New Onset A-fib RVR - converted to SR with rate control - CHADS-VASC = 2, pt agreeable to OAC - Cont Cardizem, monitor HR OP - ECHO here pending - Stress test pending outpatient - Recommend avoiding alcohol, dehydration. Work on weight loss and continue CPAP compliance Htn Obesity PERRY with CAP DM Chol - cont home meds, address outpatient If ECHO here is ok he can DC home with above meds/plan and f/u with Dr. Chen in [place] as planned.
--- NOTE | 2023-12-03 12:32 | EXP.DC.SUM ---
General Admission date:: 12/02/23 Discharge date: 12/03/23 HPI HPI HPI: This is a 68-year-old obese male with PMHx of NIDDM, GERD, hypertension, HLD presented to ED with shortness of breath and chest discomfort, with presyncope symptoms. Patient stated that he was having a normal day and when driving back home he felt very uncomfortable and short of breath. Thought his blood pressure might be abnormal, therefore decided to come to ED. He does have a history of 1 similar episode that self resolved and for which he never did seek medical care. Patient has been followed by his parts sales manager, Dr. Chen at [place]; who told him that he may have an irregular heartbeat and was scheduled for a stress test and echo that still pending. He was recently taken off of his metoprolol, due to low heart rate and put on hydralazine instead for blood pressure. He denies any known history of A-fib and has never been told that he has A-fib and is not on any blood thinners or aspirin. He denies specifically any chest pain, abdominal pain, nausea, vomiting. Admitted for management and treatment. Hospital Course Hospital Course Hospital Course: 68-year-old obese male with PMHx of NIDDM, GERD, hypertension, HLD presented to ED with shortness of breath and chest discomfort, with presyncope symptoms. On arrival, patient presented with tachycardia, atrial fibrillation. Heart rate in the 150s'. IV Cardizem push given. EKG does not show any ST changes. There was a concern for right bundle block. Labs are grossly unremarkable, troponins are negative. patient was able to control his heart rate, but continue on atrial fibrillation. Case discussed with cardiology and ER for admission. Responded with all to transitioning to oral diltiazem with good rate control. Cardiology consulted, echo obtained. Preliminary results with preserved ejection fraction. Patient initiated on medical management, stable to discharge home with close follow-up with his parts sales manager in [place]. Problems addressed as follows: -New onset A-fib with RVR: -Hypertension Patient admitted for telemetry monitoring. Initiated on diltiazem with good rate control. Adjustments made to his home regimen for blood pressure and a fib for improved rate control and to prevent hypotension. Patient initiated on diltiazem extended release 180 mg daily. Rate well-controlled during admission on diltiazem regimen. Initiate Xarelto 20 mg daily for anticoagulation given his [id number] of 2. For blood pressure can you Lasix 40 daily, losartan decreased to 50 mgs nightly, continue simvastatin 40 mg daily for cholesterol. See [facility] rec for full changes. Patient wishes to follow-up with his parts sales manager in [place]. Encourage close follow-up with Dr. Chen for further management and adjustment of medications. Patient stated understanding. -Discontinued hydralazine and amlodipine due to significant control blood pressure on diltiazem -Diabetes type 2 [id number]. Resume metformin at discharge. A1c 6.4. Currently controlled at goal current regimen Spent 30 minutes in discharge counseling, documentation, chart review, and direct care with patient. Exam Data for Last 24 hours Vital signs and Labs for Last 24 Hours: Temp Pulse Resp BP Pulse Ox O2 Del Method O2 Flow Rate 97.7 F 65 22 122/63 97 Nasal Cannula 1 12/03/23 08:00 12/03/23 08:00 12/03/23 08:00 12/03/23 08:00 12/03/23 08:00 12/03/23 10:15 12/03/23 10:15 Laboratory Results - last 24 hr 12/02/23 15:25: WBC 11.9 H, RBC 5.78, Hgb 17.7, Hct 52.8 H, MCV 91.4, MCH 30.7, MCHC 33.6, RDW 14.2, Plt Count 234, MPV 8.2, Neut % (Auto) 69.2, Lymph % (Auto) 23.6, [place] % (Auto) 5.7, Eos % (Auto) 0.8, Baso % (Auto) 0.7, Neut # (Auto) 8.2 H, Lymph # (Auto) 2.8, [place] # (Auto) 0.7, Eos # (Auto) 0.1, Baso # (Auto) 0.1, Sodium 139, Potassium 3.3 L, Chloride 108 H, Carbon Dioxide 21 L, Anion Gap 13.3, BUN 12, Creatinine 1.20, Estimated GFR 60, Est GFR ( Amer) 72, Glucose 281 H, Hemoglobin A1c 6.4 H, Calcium 9.2, Total Bilirubin 1.2, AST 32, ALT 31, Alkaline Phosphatase 74, Troponin I < 0.01, Total Protein 7.1, Albumin 4.7, Globulin 2.4, Albumin/Globulin Ratio 2.0 H, TSH 1.92 12/02/23 18:57: Troponin I < 0.01 12/02/23 20:33: POC Glucose 139 H 12/02/23 20:40: Troponin I < 0.01 12/03/23 04:56: POC Glucose 136 H 12/03/23 06:13: WBC 7.8 D, RBC 4.82, Hgb 15.2 D, Hct 44.7, MCV 92.8, MCH 31.6 H, MCHC 34.1, RDW 14.0, Plt Count 172 D, MPV 7.9, Neut % (Auto) 59.0, Lymph % (Auto) 34.1, [place] % (Auto) 5.2, Eos % (Auto) 1.2, Baso % (Auto) 0.5, Neut # (Auto) 4.6, Lymph # (Auto) 2.7, [place] # (Auto) 0.4, Eos # (Auto) 0.1, Baso # (Auto) 0.0, Sodium 140, Potassium 3.2 L, Chloride 111 H, Carbon Dioxide 27, Anion Gap 5.2, BUN 14, Creatinine 1.10, Estimated Creat Clear 113, Estimated GFR 66, Est GFR ( Amer) 80, Glucose 131 H D, Calcium 8.6, Magnesium 1.6, Total Bilirubin 1.0, AST 21 D, ALT 18 D, Alkaline Phosphatase 66, Total Protein 5.8 L, Albumin 3.6 D, Globulin 2.2, Albumin/Globulin Ratio 1.6, Triglycerides 124, Cholesterol 97 L, LDL Cholesterol Direct 61.51 L, VLDL Cholesterol 25, HDL Cholesterol 22 L, Cholesterol/HDL Ratio 4.4 H 12/03/23 10:42: POC Glucose 145 H I & O for Last 24 hours: Intake & Output 11/30/23 12/01/23 12/02/23 12/03/23 23:59 23:59 23:59 23:59 Intake Total 120 / 120 Output Total 0 / 0 Balance 120 / 120 Weight 128.593 kg 127.323 kg Constitutional Constitutional: no acute distress, obese and cooperative *Routine HEENT Exam Head: Present normocephalic Eye: Present EOMI and PERRL ENT: Present mucous membranes moist *Routine Neck Exam Neck: Present supple; Absent lymphadenopathy *Routine Respiratory Exam Respiratory: Present CTA bilaterally *Routine Cardiovascular Exam Cardiovascular: Present RRR; Absent murmur *Routine Abdominal Exam Abdominal: Present soft and normoactive bowel sounds; Absent tenderness *Routine Extremities Exam Extremities: Absent cyanosis, clubbing or edema *Routine Skin Exam Skin: Present warm; Absent rash *Routine Neurological Exam Neurological: Present alert, oriented X3 and moving all extremities; Absent altered mental status Results Data Completed and Pending Labs on day of discharge: Labs from last 24 hours 12/03/23 12/03/23 12/03/23 10:42 06:13 04:56 WBC 7.8 D RBC 4.82 Hgb 15.2 D Hct 44.7 MCV 92.8 MCH 31.6 H MCHC 34.1 RDW 14.0 Plt Count 172 D MPV 7.9 Neut % (Auto) 59.0 Lymph % (Auto) 34.1 [place] % (Auto) 5.2 Eos % (Auto) 1.2 Baso % (Auto) 0.5 Neut # (Auto) 4.6 Lymph # (Auto) 2.7 [place] # (Auto) 0.4 Eos # (Auto) 0.1 Baso # (Auto) 0.0 Sodium 140 Potassium 3.2 L Chloride 111 H Carbon Dioxide 27 Anion Gap 5.2 BUN 14 Creatinine 1.10 Estimated Creat Clear 113 Estimated GFR 66 Est GFR ( Amer) 80 Glucose 131 H D POC Glucose 145 H 136 H Hemoglobin A1c Calcium 8.6 Magnesium 1.6 Total Bilirubin 1.0 AST 21 D ALT 18 D Alkaline Phosphatase 66 Troponin I Total Protein 5.8 L Albumin 3.6 D Globulin 2.2 Albumin/Globulin Ratio 1.6 Triglycerides 124 Cholesterol 97 L LDL Cholesterol Direct 61.51 L VLDL Cholesterol 25 HDL Cholesterol 22 L Cholesterol/HDL Ratio 4.4 H TSH 12/02/23 12/02/23 12/02/23 20:40 20:33 18:57 WBC RBC Hgb Hct MCV MCH MCHC RDW Plt Count MPV Neut % (Auto) Lymph % (Auto) [place] % (Auto) Eos % (Auto) Baso % (Auto) Neut # (Auto) Lymph # (Auto) [place] # (Auto) Eos # (Auto) Baso # (Auto) Sodium Potassium Chloride Carbon Dioxide Anion Gap BUN Creatinine Estimated Creat Clear Estimated GFR Est GFR ( Amer) Glucose POC Glucose 139 H Hemoglobin A1c Calcium Magnesium Total Bilirubin AST ALT Alkaline Phosphatase Troponin I < 0.01 < 0.01 Total Protein Albumin Globulin Albumin/Globulin Ratio Triglycerides Cholesterol LDL Cholesterol Direct VLDL Cholesterol HDL Cholesterol Cholesterol/HDL Ratio TSH 12/02/23 15:25 WBC 11.9 H RBC 5.78 Hgb 17.7 Hct 52.8 H MCV 91.4 MCH 30.7 MCHC 33.6 RDW 14.2 Plt Count 234 MPV 8.2 Neut % (Auto) 69.2 Lymph % (Auto) 23.6 [place] % (Auto) 5.7 Eos % (Auto) 0.8 Baso % (Auto) 0.7 Neut # (Auto) 8.2 H Lymph # (Auto) 2.8 [place] # (Auto) 0.7 Eos # (Auto) 0.1 Baso # (Auto) 0.1 Sodium 139 Potassium 3.3 L Chloride 108 H Carbon Dioxide 21 L Anion Gap 13.3 BUN 12 Creatinine 1.20 Estimated Creat Clear Estimated GFR 60 Est GFR ( Amer) 72 Glucose 281 H POC Glucose Hemoglobin A1c 6.4 H Calcium 9.2 Magnesium Total Bilirubin 1.2 AST 32 ALT 31 Alkaline Phosphatase 74 Troponin I < 0.01 Total Protein 7.1 Albumin 4.7 Globulin 2.4 Albumin/Globulin Ratio 2.0 H Triglycerides Cholesterol LDL Cholesterol Direct VLDL Cholesterol HDL Cholesterol Cholesterol/HDL Ratio TSH 1.92 DS: Diagnosis Discharge Diagnosis (1) New onset a-fib: Status: Acute Code(s): I48.91 - Unspecified atrial fibrillation (2) Atrial fibrillation with rapid ventricular response: Status: Acute Code(s): I48.91 - Unspecified atrial fibrillation (3) Hypertension: Status: Acute Code(s): I10 - Essential (primary) hypertension Qualifiers: Hypertension type: unspecified Qualified Code(s): I10 - Essential (primary) hypertension (4) Hyperlipidemia: Status: Acute Code(s): E78.5 - Hyperlipidemia, unspecified Qualifiers: Hyperlipidemia type: unspecified Qualified Code(s): E78.5 - Hyperlipidemia, unspecified (5) Diabetes mellitus: Status: Acute Code(s): E11.9 - Type 2 diabetes mellitus without complications Qualifiers: Diabetes mellitus complication status: with other specified complication Diabetes mellitus long-term insulin use: without superintendent container terminal use Diabetes mellitus type: type 2 Qualified Code(s): E11.69 - Type 2 diabetes mellitus with other specified complication (6) Obesity: Status: Acute Code(s): E66.9 - Obesity, unspecified Qualifiers: Body mass index: BMI 37.0-37.9 Obesity classification: adult class 2 (BMI 35 - 39.9) Obesity type: unspecified obesity type Serious obesity comorbidity presence: unspecified whether serious comorbidity present Qualified Code(s): E66.9 - Obesity, unspecified; Z68.37 - Body mass index [BMI] 37.0-37.9, adult Meds Home Medications and Allergies Home Medications Medication Instructions Recorded Confirmed Type omeprazole 40 mg capsule,delayed 40 mg PO DAILY Acid Reflux 10/12/17 12/03/23 History release simvastatin 40 mg tablet 40 mg PO HS Cholesterol 10/12/17 12/03/23 History oxybutynin chloride 10 mg 10 mg PO DAILY 90 days #90 tabs 09/26/18 12/03/23 History tablet,extended release 24 hr metformin 1,000 mg tablet 1,000 mg PO BID Diabetes 10/15/19 12/03/23 History citalopram 20 mg tablet 20 mg PO DAILY Mood 12/02/23 12/03/23 History fluticasone furoate 27.5 1 spray intranasal DAILY Allergy 12/02/23 12/03/23 History mcg/actuation nasal Symptoms spray,suspension (Flonase Sensimist) furosemide 40 mg tablet 40 mg PO DAILY Fluid 12/02/23 12/03/23 History levocetirizine 5 mg tablet 5 mg PO DAILY Allergy Symptoms 12/02/23 12/03/23 History montelukast 10 mg tablet 10 mg PO PM Allergy Symptoms 12/02/23 12/03/23 History topiramate 50 mg tablet 50 mg PO BID Migraines 12/02/23 12/03/23 History diltiazem HCl 180 mg 180 mg PO DAILY 30 days #30 caps 12/03/23 Rx capsule,extended release 24 hr losartan 100 mg tablet 50 mg PO HS High Blood Pressure 30 12/03/23 12/03/23 Rx days #0 tabs rivaroxaban 20 mg tablet 20 mg PO HS 30 days #30 tabs 12/03/23 Rx New Prescriptions to Start Prescriptions: diltiazem HCl Ousmane Gutierrezroxaban Ousmane Gutierrez Allergies Allergy/AdvReac Type Severity Reaction Status Date / Time codeine [CODEINE] Allergy Unknown Verified 12/02/23 18:26 lisinopril AdvReac Mild cough Verified 12/02/23 22:16 Discharge Plan Disposition Patient Disposition: Home, Self-Care Condition: Good Follow up Plan Follow up with: Ruth Martines [Referring] - 12/08/23 9:40 am Prescriptions/Medication Reconciliation: New diltiazem HCl 180 mg Capsule,Extended Release 24hr 180 mg PO DAILY 30 Days Qty: 30 0RF rivaroxaban 20 mg tablet 20 mg PO HS 30 Days Qty: 30 0RF Continued simvastatin 40 mg tablet 40 mg PO HS omeprazole 40 mg capsule,delayed release(DR/EC) 40 mg PO DAILY oxybutynin chloride 10 mg tablet extended release 24hr 10 mg PO DAILY 90 Days Qty: 90 metformin 1,000 mg tablet 1,000 mg PO BID furosemide 40 mg tablet 40 mg PO DAILY citalopram 20 mg tablet 20 mg PO DAILY montelukast 10 mg tablet 10 mg PO PM topiramate 50 mg tablet 50 mg PO BID Patient Comments: TAKE 1 TABLET BY MOUTH TWICE DAILY Flonase Sensimist 27.5 mcg/actuation spray,suspension 1 spray INTRANASAL DAILY levocetirizine 5 mg tablet 5 mg PO DAILY Changed losartan 100 mg tablet 50 mg PO HS 30 Days Qty: 0 0RF Discontinued amlodipine 10 mg tablet 10 mg PO DAILY hydralazine 50 mg tablet 50 mg PO BID Patient Comments: TAKE 1 TABLET BY MOUTH TWICE DAILY Problem Reconciliation Problems Reviewed?: Yes Patient Discharge Instructions ACTIVITY: Continue current activity DIET: continue same diet Patient Instructions: DI for Atrial Fibrillation Providers Primary Care Provider: Provider,Referral Admit Provider: Ousmane Gutierrez Attending Provider: Ousmane Gutierrez
--- NOTE | 2023-12-07 12:46 | CARE MANAGER ---
Contacted patient related to hospital discharge. 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 He is aware of his follow up appointment. Transferred to HIM to request medical records. KALPESH Ricks
== END 2023-12-03 14:06 | disposition home or self-care (01) ==
LOC: ER 15:51 → 2ND 17:18
PROVIDERS: Admitting Provider Internal Medicine Adolescent Medicine; Emergency Provider Emergency Medicine; Visit Provider Internal Medicine Adolescent Medicine
DX: I48.91 Unspecified atrial fibrillation (principal); I10 Essential (primary) hypertension; E78.5 Hyperlipidemia, unspecified; E11.69 Type 2 diabetes mellitus with other specified complication; E66.9 Obesity, unspecified; Z68.37 Body mass index [BMI] 37.0-37.9, adult; R06.02 Shortness of breath; Z79.899 Other long term (current) drug therapy; Z79.84 Long term (current) use of oral hypoglycemic drugs
CPT/HCPCS: 36415; 71045; 80053; 80061; 82962; 83036; 83735; 84443; 84484; 85025; 93005; 93306; 99285; G0378

== ENCOUNTER 2024-04-06 09:10 | Emergency (ER) | payer MEDICARE, OTHER, SELFPAY ==
[2024-04-06] VITALS (8 sets, daily range): BP systolic 131–187; BP diastolic 77–99; PULSE 55–64; RESP 16–20; TEMP 36.6–36.8; O2SAT 93–97; BMI 36.9
--- NOTE | 2024-04-06 09:34 | PC.NURSE ---
DR JEAN AT BEDSIDE
--- NOTE | 2024-04-06 09:37 | CT_ITS ---
FINAL REPORT TECHNIQUE: Axial imaging of the head was obtained without contrast. This study was performed with techniques to keep radiation doses as low as reasonably achievable, (ALARA). Individualized dose reduction techniques using automated exposure control or adjustment of mA and/or kV according to the patient's size were employed. CLINICAL HISTORY: headache, L arm tingling COMPARISON: None FINDINGS: No abnormal density is seen. Ventricles are normal. There is no hemorrhage. No mass effect is seen. There is opacification of the bilateral mastoid air cells which may be seen with mastoiditis. Bone windows show no evidence of fracture. IMPRESSION: No acute findings Reviewed, Interpreted and Dictated by Jose Damon MD Transcribed by Mariajose Hameed Authenticated and [facility]
--- NOTE | 2024-04-06 09:37 | CT_ITS ---
FINAL REPORT TECHNIQUE: Multiple axial CT angiography images were performed from the foramen magnum to the vertex before and during IV contrast administration. This study was performed with techniques to keep radiation doses as low as reasonably achievable (ALARA). Individualized dose reduction techniques using automated exposure control or adjustment of mA and/or kV according to the patient's size were employed. CLINICAL HISTORY: headache, L arm tingling COMPARISON: None FINDINGS: CTA HEAD No aneurysm is seen. Major intracranial vessels are patent without significant stenosis. . IMPRESSION: Unremarkable Reviewed, Interpreted and Dictated by Jose Damon MD Transcribed by Mariajose Hameed Authenticated and [facility]
--- NOTE | 2024-04-06 09:37 | CT_ITS ---
FINAL REPORT CLINICAL HISTORY: headache, L arm tingling COMPARISON: None FINDINGS: CT NECK ANGIO, WITHOUT AND WITH CONTRAST Thin section axial CT with IV contrast supplemented with 3D MIP reconstruction. This study was performed with techniques to keep radiation doses as low as reasonably achievable, (ALARA). Individualized dose reduction techniques using automated exposure control or adjustment of mA and/or kV according to the patient's size were employed. NASCET criteria and technique was utilized during interpretation. Aortic arch: Arch shows no significant narrowing. Great vessel origins are widely patent. Right carotid: No significant stenosis is seen of the cervical common or internal carotid artery. Left carotid: No significant stenosis is seen of the cervical common or internal carotid artery. Vertebrals: Vertebral arteries are codominant. No significant stenosis is present. IMPRESSION: No significant stenosis of the cervical carotid arteries Reviewed, Interpreted and Dictated by Jose Damon MD Transcribed by Mariajose Hameed Authenticated and [facility]
--- NOTE | 2024-04-06 09:37 | CT_ITS ---
FINAL REPORT TECHNIQUE: Thin section axial CT images were performed from the lung apices to the upper abdomen after the administration of IV contrast. 3-D and MIP reconstructions performed. This study was performed with techniques to keep radiation doses as low as reasonably achievable (ALARA). Individualized dose reduction techniques using automated exposure control or adjustment of mA and/or kV according to the patient's size were employed. CLINICAL HISTORY: headache, high blood pressure, L arm tingling COMPARISON: None FINDINGS: Pulmonary vessels enhance in normal fashion without evidence of embolism. Thoracic aorta shows no dissection or aneurysm. No pulmonary mass or infiltrate is present. There is no significant pleural effusion. There is no significant pericardial effusion. No mediastinal or hilar adenopathy is present. IMPRESSION: No evidence of pulmonary embolism Reviewed, Interpreted and Dictated by Jose Damon MD Transcribed by Mariajose Hameed Authenticated and [facility]
--- NOTE | 2024-04-06 09:39 | ECG_ITS ---
APPROVED REPORT Exam: Resting ECG HR:66 bpm ECG Measurements Heart Rate 66 AXES WI 177 P 52 QRSd 134 QRS -52 QT 465 T -8 QTc 479 Conclusion SINUS RHYTHM RIGHT BUNDLE BRANCH BLOCK [120+ ms QRS DURATION, UPRIGHT V1, 40+ ms S IN I/aVL/V4/V5/V6] INFERIOR MYOCARDIAL INFARCTION , OF INDETERMINATE AGE [40+ ms Q WAVE AND/OR ST/T ABNORMALITY IN II/aVF] ABNORMAL ECG Electronically signed by : MADISON JAEN, 04/07/2024 16:00:42
[2024-04-06] MEDS: diphenhydrAMINE 50MG/ML VIAL 12.5 MG IV (09:43)
--- NOTE | 2024-04-06 09:43 | [facility].EDGENADL ---
Discharge Plan Disposition Patient Disposition: Home, Self-Care Condition: Good Prescriptions Prescriptions: No Action simvastatin 40 mg tablet 40 mg PO HS omeprazole 40 mg capsule,delayed release(DR/EC) 40 mg PO DAILY oxybutynin chloride 10 mg tablet extended release 24hr 10 mg PO DAILY 90 Days Qty: 90 metformin 1,000 mg tablet 1,000 mg PO BID furosemide 40 mg tablet 40 mg PO DAILY citalopram 20 mg tablet 20 mg PO DAILY montelukast 10 mg tablet 10 mg PO PM topiramate 50 mg tablet 50 mg PO BID Patient Comments: TAKE 1 TABLET BY MOUTH TWICE DAILY Flonase Sensimist 27.5 mcg/actuation spray,suspension 1 spray INTRANASAL DAILY levocetirizine 5 mg tablet 5 mg PO DAILY diltiazem HCl 180 mg Capsule,Extended Release 24hr 180 mg PO DAILY 30 Days Qty: 30 0RF rivaroxaban 20 mg tablet 20 mg PO HS 30 Days Qty: 30 0RF losartan 100 mg tablet 50 mg PO HS 30 Days Qty: 0 0RF Referrals Follow up/Referrals: Ruth Martines [Primary Care Provider] - See instructions Activity Restrictions/Add. Instructions Additional Instructions/Restrictions: You were evaluated in the emergency department today. 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 I recommend continuing to take it at home at least once a day so that way they can adjust your medications as appropriate. Return to the emergency department for any new or worsening symptoms. Clinical Impressions Clinical Impression: Headache, HBP (high blood pressure), Arm pain, left Instructions Patient Instructions: DI for High Blood Pressure, DI for Headache Discharge ED Provider: Jerri Martines General Adult HPI General Chief complaint: Headache Stated complaint: headche, poss high blood pressure Time Seen by Provider: 04/06/24 09:18 Mode of Arrival: Ambulatory Source of Information: Patient Limitations: No Limitations Description of Symptoms (Recalled from ER Triage Doc. by RN): PT REPORTS A CONSTANT HEADACHE RATING IT 6/10 FOR 3 DAYS, STATES IT IS IN THE BACK OF HIS HEAD, HX OF HEADACHES, DENIES VISION CHANGES, ALSO STATES HIS L ARM IN THE BACK OF IT BY HIS BICEP HAS BEEN SORE AND ACHING INTERMITTENTLY FOR 3 DAYS, DENIES ANY INJURY, STATES BP HAS BEEN ELEVATED WELL SYSTOLIC 180S-200S AND DIASTOLIC 90S-100S, TAKES BP MEDS ONCE DAILY AT NIGHT History of Present Illness HPI narrative: This patient is a 68-year-old male with a history of hypertension, hyperlipidemia, atrial fibrillation, and diabetes presenting to the emergency department for evaluation with concern for headache at the top part of his head as well as a strange sensation in his left arm. States his arm is been aching intermittently for 3 days. He also reports intermittent left upper chest pain. He states that he has had this headache but has had no vision changes, weakness, gait disturbance, or other concerns. He has had no shortness of breath. He notes that his blood pressure has been high at home with systolics in the 180s to 200s and diastolics in the 90s to 100s. He takes his blood pressure approximately every 4 hours. he reports compliance with his home medication. On medical record review, his medication list includes losartan, diltiazem, citalopram, Lasix, metformin, and Xarelto. Of note, he does report a history of cluster migraines, but states he has not dealt with this for a while. Related Data Home Medications Medication Instructions Recorded Confirmed omeprazole 40 mg capsule,delayed 40 mg PO DAILY Acid Reflux 10/12/17 04/06/24 release simvastatin 40 mg tablet 40 mg PO HS Cholesterol 10/12/17 04/06/24 oxybutynin chloride 10 mg 10 mg PO DAILY 90 days #90 tabs 09/26/18 04/06/24 tablet,extended release 24 hr metformin 1,000 mg tablet 1,000 mg PO BID Diabetes 10/15/19 04/06/24 citalopram 20 mg tablet 20 mg PO DAILY Mood 12/02/23 04/06/24 fluticasone furoate 27.5 1 spray intranasal DAILY Allergy 12/02/23 04/06/24 mcg/actuation nasal Symptoms spray,suspension (Flonase Sensimist) furosemide 40 mg tablet 40 mg PO DAILY Fluid 12/02/23 04/06/24 levocetirizine 5 mg tablet 5 mg PO DAILY Allergy Symptoms 12/02/23 04/06/24 montelukast 10 mg tablet 10 mg PO PM Allergy Symptoms 12/02/23 04/06/24 topiramate 50 mg tablet 50 mg PO BID Migraines 12/02/23 04/06/24 Previous Rx's Medication Instructions Recorded diltiazem HCl 180 mg 180 mg PO DAILY 30 days #30 caps 12/03/23 capsule,extended release 24 hr losartan 100 mg tablet 50 mg (1/2 x 100 mg) PO HS High 12/03/23 Blood Pressure 30 days #0 tabs rivaroxaban 20 mg tablet 20 mg PO HS 30 days #30 tabs 12/03/23 Allergies Allergy/AdvReac Type Severity Reaction Status Date / Time codeine [CODEINE] Allergy Unknown Verified 04/06/24 09:25 lisinopril AdvReac Mild cough Verified 04/06/24 09:25 [facility] Disclaimer: The information contained in this section may have been updated after the patient was seen, as this information can be updated by other users. Medical History Hypertension Hyperlipidemia History of left heart catheterization (LHC) Surgical History H/O vasectomy H/O wrist replacement History of tonsillectomy History of colonoscopy Family History Other No significant family history Social History Smoking Status: Never smoker alcohol intake: current alcohol intake frequency: a few times a week substance use type: denies use current occupational status: retired Travel in the last 8 weeks: None ROS Obtained: Yes All systems reviewed & no additional complaints except as documented Physical Exam General General appearance: alert and in no apparent distress Head Head exam: atraumatic and normocephalic Eye Eye exam: Present normal appearance, PERRL and EOMI ENT ENT exam: Present normal exam, normal oropharynx, mucous membranes moist and normal external ear exam Neck Neck exam: Present normal inspection, full ROM and trachea midline; Absent tenderness Chest Chest inspection: Present normal inspection and symmetric chest wall rise; Absent tenderness Respiratory Respiratory exam: Present normal lung sounds bilaterally; Absent respiratory distress, wheezes, stridor or accessory muscle use Cardiovascular Cardiovascular exam: Present regular rate and normal rhythm Abdominal Exam Abdominal exam: Present soft; Absent distention, tenderness or guarding Extremities Exam Extremities exam: Present normal inspection, full ROM and normal capillary refill; Absent tenderness or edema Back Exam Back exam: Present normal inspection and full ROM; Absent tenderness Neurological Exam Neurological exam: Present alert, oriented X3, CN II-XII intact and normal gait; Absent motor sensory deficit Psychiatric Psychiatric exam: Present normal affect and normal mood Skin Skin exam: Present warm and dry Medical Decision Making Medical Records Medical records reviewed: Yes I reviewed the patient's medical records. Orestes Inquiry Pt receiving controlled substance: No Vital Signs: 04/06/24 09:11 04/06/24 09:35 04/06/24 10:20 Temperature 97.8 F Temperature Source Oral Pulse Rate 55 L 64 Pulse Rate [Right Radial] 57 L Respiratory Rate 20 18 16 Blood Pressure 168/99 H 160/77 H Blood Pressure [Right Arm] 184/88 H Blood Pressure Mean 139 108 Blood Pressure Mean [Right Arm] 120 Blood Pressure Source Blood Pressure Source [Right Arm] Automatic Cuff Blood Pressure Position Blood Pressure Position [Right Arm] Sitting 02 Sat by Pulse Oximetry 97 94 L 94 L Oxygen Delivery Method Room Air 04/06/24 10:30 04/06/24 11:12 04/06/24 11:30 Temperature Temperature Source Pulse Rate 58 L 59 L 59 L Pulse Rate [Right Radial] Respiratory Rate 18 18 18 Blood Pressure 142/86 H 131/85 156/88 H Blood Pressure [Right Arm] Blood Pressure Mean 100 108 Blood Pressure Mean [Right Arm] Blood Pressure Source Blood Pressure Source [Right Arm] Blood Pressure Position Blood Pressure Position [Right Arm] 02 Sat by Pulse Oximetry 95 96 96 Oxygen Delivery Method 04/06/24 12:01 04/06/24 12:40 Temperature 98.2 F Temperature Source Oral Pulse Rate 60 57 L Pulse Rate [Right Radial] Respiratory Rate 20 Blood Pressure 187/99 H 150/84 H Blood Pressure [Right Arm] Blood Pressure Mean Blood Pressure Mean [Right Arm] Blood Pressure Source Automatic Cuff Blood Pressure Source [Right Arm] Blood Pressure Position Sitting Blood Pressure Position [Right Arm] 02 Sat by Pulse Oximetry 95 Oxygen Delivery Method Room Air Lab Data Lab results reviewed: Yes I reviewed the patient's lab results. Lab Results 04/06/24 09:30: WBC 8.0, RBC 5.73, Hgb 17.7, Hct 50.0, MCV 87.1, MCH 30.9, MCHC 35.5 H, RDW 13.9, Plt Count 210, MPV 7.5, Neut % (Auto) 66.7, Lymph % (Auto) 25.1, Whitley % (Auto) 5.4, Eos % (Auto) 1.8, Baso % (Auto) 1.0, Neut # (Auto) 5.4, Lymph # (Auto) 2.0, Whitley # (Auto) 0.4, Eos # (Auto) 0.2, Baso # (Auto) 0.1, PT 11.0, INR 1.02, APTT 34.3 H, Sodium 139, Potassium 4.1, Chloride 104, Carbon Dioxide 25, Anion Gap 14.1, BUN 20, Creatinine 1.10, Estimated Creat Clear 112, Estimated GFR 66, Est GFR ( Amer) 80, Glucose 179 H, Calcium 9.2, Total Bilirubin 1.1, AST 30, ALT 27, Alkaline Phosphatase 65, Troponin I 0.01, Total Protein 7.3 D, Albumin 4.6, Globulin 2.7, Albumin/Globulin Ratio 1.7 04/06/24 11:53: Troponin I 0.01 04/06/24 09:30 04/06/24 09:30 Orders (Tests/Meds): ED MEDICATIONS Discontinued Medications Generic Name Dose Route Start Last Admin Trade Name Freq PRN Reason Stop Dose Admin Acetaminophen 1,000 mg 04/06/24 09:37 04/06/24 09:44 Acetaminophen 1,000mg/100ml Vial IV 04/06/24 09:38 1,000 mg ONCE ONE Administration Diphenhydramine HCl 12.5 mg 04/06/24 09:37 04/06/24 09:43 Diphenhydramine 50mg/Ml Vial IV 04/06/24 09:38 12.5 mg ONCE ONE Administration Lactated Ringer's 1,000 mls @ 999 mls/hr 04/06/24 09:37 04/06/24 09:44 Lactated Ringer's 1000 Ml Bag IV 04/06/24 10:37 999 mls/hr .Q1H1M ONE Administration Iopamidol 200 ml 04/06/24 10:06 04/06/24 10:07 Iopamidol-370 (76%);100ml Bottle IV 04/06/24 10:07 200 ml ONCE ONE Administration Ketorolac Tromethamine 15 mg 04/06/24 09:37 04/06/24 09:44 Ketorolac 30mg/Ml Vial IV 04/06/24 09:38 15 mg ONCE ONE Administration Metoclopramide HCl 10 mg 04/06/24 09:37 04/06/24 09:44 Metoclopramide Hcl 10mg/2ml Vial IVP 04/06/24 09:38 10 mg ONCE ONE Administration Sodium Chloride 100 ml 04/06/24 10:06 04/06/24 10:07 0.9 % Sodium Chloride 50 Ml Vial IV 04/06/24 10:07 100 ml ONCE ONE Administration Sodium Chloride 10 ml 04/06/24 10:06 04/06/24 10:07 Sodium Chloride 0.9% 10ml Syr (Rad Only) IV 05/06/24 10:05 10 ml NEEDED PRN Administration Maintain IV Site ORDERS Category Date Time Status CT angio chest - dissection Stat Cat Scan 04/06/24 09:[address] angio head Stat Cat Scan 04/06/24 09:[address] angio neck Stat Cat Scan 04/06/24 09:[address] head/brain wo con Stat Cat Scan 04/06/24 09:37 Completed Activated Partial Thrombo Time Stat Lab 04/06/24 09:30 Completed Complete Blood Count Auto Diff Stat Lab 04/06/24 09:30 Completed Comprehensive Metabolic Panel Stat Lab 04/06/24 09:30 Completed Prothrombin Time INR Stat Lab 04/06/24 09:30 Completed Troponin I Q3H Lab 04/06/24 11:53 Completed Troponin I Stat Lab 04/06/24 09:30 Completed ECG Data Tracing #1: I reviewed this ECG and interpreted as documented below: Normal sinus rhythm with a ventricular rate of 66 bpm. Right bundle branch block noted. Some motion artifact noted. No acute ST changes concerning for ischemia. No significant changes noted from prior EKG. ECG initial impression date: 04/06/24 ECG initial impression time: 09:42 Medical Decision Narrative: In summary, this patient is a 68-year-old male presenting to the Emergency Department for evaluation of headache, left arm pain, chest pain, and high blood pressure readings at home. Differential diagnoses considered include but are not limited to ACS, hypertensive urgency, hypertensive emergency, migraine, intracranial hemorrhage, intracranial mass, CVA, aortic dissection. Ruling out the most morbid conditions drove assessment. It should be noted patient's history includes hypertension and hyperlipidemia which are not at goal therapy. This complicates all aspects of care by increasing patient's risk for morbidity. I reviewed patient's past medical records and noted previous admission back in November for new onset atrial fibrillation. On exam, the patient is resting comfortably in bed in no acute distress and is neurologically intact. He is hypertensive with systolics in the 160s to 180s. He is also slightly bradycardic, but otherwise vitals and exam are reassuring. Workup included CBC, CMP, troponin, CT head, CT angiogram chest, head, and neck. EKG was obtained and is reassuring. Patient was given a bolus of IV fluids as well as IV Toradol, Reglan, Benadryl, and acetaminophen for migraine cocktail. Will assess for symptomatic improvement and headache as well as improvement in blood pressure. I independently interpreted CT scans prior to the radiologist read and noted no intracranial hemorrhage and no space-occupying lesions. Please see their read for final interpretation. Labs were obtained that demonstrated no acutely concerning abnormalities with negative troponins x 2. On reassessment, patient had great improvement after administration of migraine cocktail. His headache is significantly improved and he also has had improvement in his blood pressure with systolics in the 150s to 160s on repeat assessments. At this time, patient was deemed to be appropriate for discharge home with very close follow-up with primary care for further management of his hypertension. I feel he likely had a migraine that was causing further elevation in his blood pressure from his baseline. Strict return precautions were given as well as instructions for close outpatient follow-up. The patient was discharged after all questions were answered. Critical Care Critical Care Time Critical Care Time: No
[2024-04-06] MEDS: METOCLOPRAMIDE HCL 10MG/2ML VIAL 10 MG IVP (09:44)
[2024-04-06] MEDS: LACTATED RINGERS 1000ML 1,000 ML 999 ML IV (09:44)
[2024-04-06] MEDS: KETOROLAC 30MG/ML VIAL 15 MG IV (09:44)
[2024-04-06] MEDS: ACETAMINOPHEN 1,000MG/100ML VIAL 1000 MG IV (09:44)
[2024-04-06 09:49] LABS: Chloride 104 mmol/L (98-107); Potassium 4.1 mmoL/L (3.5-5.1); Sodium 139 mmol/L (136-145)
[2024-04-06 09:52] LABS: Activated Partial Thrombo Time 34.3 seconds (22.8-30.6); Alanine Aminotransferase 27 U/L (12-78); Albumin Level 4.6 g/dl (3.5-5.0); Albumin/Globulin Ratio 1.7 (1.1-1.8); Alkaline Phosphatase 65 U/L (38-126); Anion Gap 14.1 mEq/L (5-15); Aspartate Amino Transferase 30 U/L (17-59); Bilirubin,Total 1.1 mg/dl (0.2-1.3); Blood Urea Nitrogen 20 mg/dl (9-20); Calcium 9.2 mg/dl (8.4-10.2); Carbon Dioxide 25 mmol/L (22.0-30.0); Creatinine Clearance Estimated 112 mL/min (50-200); Estimated Glomerular Filt Rate 66 ml/min (>60); GFR (African American) 80 ML/MIN (>60); Globulin 2.7 g/dL (1.3-3.2); Glucose 179 mg/dl (74-100); INR 1.02 (0.9-1.1); Total Protein,Serum 7.3 g/dl (6.3-8.2)
[2024-04-06] MEDS: IOPAMIDOL-370 (76%);100ML BOTTLE 200 ML IV (10:07)
[2024-04-06] MEDS: SODIUM CHLORIDE 0.9% 10ML SYR (RAD ONLY) 10 ML IV (10:07)
[2024-04-06] MEDS: 0.9 % SODIUM CHLORIDE 50 ML VIAL 100 ML IV (10:07)
[2024-04-06 10:10] LABS: Troponin I 0.01 ng/ml (0.00-0.034)
[2024-04-06 10:21] LABS: Basophils # 0.1 K/mm3 (0-0.2); Eosinophils # 0.2 K/mm3 (0.0-0.4); Eosinophils % 1.8 % (0.1-12.0); Hemoglobin 17.7 g/dL (14.1-18.0); Lymphocytes % 25.1 % (10-50); Mean Corpuscular HGB Conc 35.5 g/dL (31.8-35.4); Mean Corpuscular Hemoglobin 30.9 pg (27.0-31.2); Mean Corpuscular Volume 87.1 fl (80-94); Mean Platelet Volume 7.5 fl (7.4-10.4); Monocytes # 0.4 K/mm3 (0.1-1.0); Monocytes % 5.4 % (1.7-9.3); Neutrophils # 5.4 K/mm3 (1.8-7.8); Neutrophils % 66.7 % (37.0-80.0); Platelet Count 210 K/mm3 (142-424); Red Blood Count 5.73 M/mm3 (4.60-6.20); Red Cell Distribution Width 13.9 % (11.5-17.5)
--- NOTE | 2024-04-06 10:21 | PC.NURSE ---
PT RESTING IN BED AT THIS TIME. AT BEDSIDE. UPDATED ON PLAN OF CARE. CALL LIGHT WITHIN REACH.
--- NOTE | 2024-04-06 11:14 | PC.NURSE ---
AT BEDSIDE. PT RESTING IN BED. NO QUESTIONS OR CONCERNS VOICED. BED IN LOWEST POSITION. CALL LIGHT WITHIN REACH
--- NOTE | 2024-04-06 11:57 | PC.NURSE ---
REPEAT TROP SENT
[2024-04-06 12:30] LABS: Troponin I 0.01 ng/ml (0.00-0.034)
== END 2024-04-06 12:41 | disposition home or self-care (01) ==
PROVIDERS: Emergency Provider Emergency Medicine; PCP Family Medicine
DX: R51.9 Headache, unspecified (principal); I10 Essential (primary) hypertension; M79.602 Pain in left arm; E11.9 Type 2 diabetes mellitus without complications; E78.5 Hyperlipidemia, unspecified; I48.0 Paroxysmal atrial fibrillation; Z79.01 Long term (current) use of anticoagulants; Z79.84 Long term (current) use of oral hypoglycemic drugs; I45.10 Unspecified right bundle-branch block
CPT/HCPCS: 70450; 70496; 70498; 71275; 80053; 84484; 85025; 85610; 85730; 93005; 96361; 96374; 96375; 99285; J0131; J1885; J2765; J7120; Q9967

== ENCOUNTER 2024-06-27 14:25 | Emergency (ER) | payer MEDICARE, OTHER, SELFPAY ==
[2024-06-27 14:55] VITALS: BP 159/81; PULSE 71; RESP 16; TEMP 36.6; O2SAT 98; BMI 39.2
--- NOTE | 2024-06-27 14:58 | ED_ITS ---
Discharge Plan Disposition Patient Disposition: Home, Self-Care Condition: Good Prescriptions Prescriptions: New methylprednisolone 4 mg Tablets,Dose Pack 4 mg PO DIRECTED 6 Days Qty: 21 0RF Rx Instructions: Take 1 pack as directed for 6 days No Action simvastatin 40 mg tablet 40 mg PO HS omeprazole 40 mg capsule,delayed release(DR/EC) 40 mg PO DAILY oxybutynin chloride 10 mg tablet extended release 24hr 10 mg PO DAILY 90 Days Qty: 90 metformin 1,000 mg tablet 1,000 mg PO BID furosemide 40 mg tablet 40 mg PO DAILY citalopram 20 mg tablet 20 mg PO DAILY montelukast 10 mg tablet 10 mg PO PM topiramate 50 mg tablet 50 mg PO BID Patient Comments: TAKE 1 TABLET BY MOUTH TWICE DAILY Flonase Sensimist 27.5 mcg/actuation spray,suspension 1 spray INTRANASAL DAILY levocetirizine 5 mg tablet 5 mg PO DAILY diltiazem HCl 180 mg Capsule,Extended Release 24hr 180 mg PO DAILY 30 Days Qty: 30 0RF rivaroxaban 20 mg tablet 20 mg PO HS 30 Days Qty: 30 0RF losartan 100 mg tablet 50 mg PO HS 30 Days Qty: 0 0RF Referrals Follow up/Referrals: Ruth Martines [Primary Care Provider] - See instructions Handy Rivas DO [Staff Physician] - See instructions Activity Restrictions/Add. Instructions Additional Instructions/Restrictions: Rest the extremity, apply ice for 15 minutes as tolerated three or four times per day, Wear the madeleine wrap for compression, Elevate the extremity as tolerated while you are resting. Take the medication as directed. Follow up with Dr. Rivas (orthopedics). I put in a referral but you need to call his office and schedule an appointment. Follow up with your regular doctor. GO TO THE ER FOR ANY WORSENING SYMPTOMS Clinical Impressions Clinical Impression: Pain in right knee, Osteoarthritis of right knee Instructions Patient Instructions: DI for Knee Pain, Methylprednisolone, How to Apply an Elastic Wrap on Knee Print Language Print Language: Georgian Discharge ED Provider: Ousmane Metcalf [facility] General Stated complaint: right knee pain, no known inj Time Seen by Provider: 06/27/24 14:58 History of Present Illness Provider Complaint: He states that for the past 5 days he has had worsening right knee pain and swelling. He denies injury. He has had episodes of knee pain similar to this in the past, but they have not got this bad. He has been resting and elevating his knee but it has not really helped. Related Data Home Medications ?Medication ?Instructions ?Recorded ?Confirmed omeprazole 40 mg capsule,delayed 40 mg PO DAILY Acid Reflux 10/12/17 04/06/24 release simvastatin 40 mg tablet 40 mg PO HS Cholesterol 10/12/17 04/06/24 oxybutynin chloride 10 mg 10 mg PO DAILY 90 days #90 tabs 09/26/18 04/06/24 tablet,extended release 24 hr metformin 1,000 mg tablet 1,000 mg PO BID Diabetes 10/15/19 04/06/24 citalopram 20 mg tablet 20 mg PO DAILY Mood 12/02/23 04/06/24 fluticasone furoate 27.5 1 spray intranasal DAILY Allergy 12/02/23 04/06/24 mcg/actuation nasal Symptoms spray,suspension (Flonase Sensimist) furosemide 40 mg tablet 40 mg PO DAILY Fluid 12/02/23 04/06/24 levocetirizine 5 mg tablet 5 mg PO DAILY Allergy Symptoms 12/02/23 04/06/24 montelukast 10 mg tablet 10 mg PO PM Allergy Symptoms 12/02/23 04/06/24 topiramate 50 mg tablet 50 mg PO BID Migraines 12/02/23 04/06/24 Previous Rx's ?Medication ?Instructions ?Recorded diltiazem HCl 180 mg 180 mg PO DAILY 30 days #30 caps 12/03/23 capsule,extended release 24 hr losartan 100 mg tablet 50 mg (1/2 x 100 mg) PO HS High 12/03/23 Blood Pressure 30 days #0 tabs rivaroxaban 20 mg tablet 20 mg PO HS 30 days #30 tabs 12/03/23 methylprednisolone 4 mg tablets in 4 mg PO DIRECTED 6 days #21 tabs 06/27/24 a dose pack Allergies Allergy/AdvReac Type Severity Reaction Status Date / Time codeine [CODEINE] Allergy Unknown Verified 04/06/24 09:25 lisinopril AdvReac Mild cough Verified 04/06/24 09:25 [facility] Disclaimer: The information contained in this section may have been updated after the patient was seen, as this information can be updated by other users. Medical History Hypertension Hyperlipidemia History of left heart catheterization (LHC) Surgical History H/O vasectomy H/O wrist replacement History of tonsillectomy History of colonoscopy Family History Other No significant family history Social History Smoking Status: Never smoker alcohol intake: current alcohol intake frequency: a few times a week substance use type: denies use current occupational status: retired Travel in the last 8 weeks: None ROS Obtained: Yes All systems reviewed & no additional complaints except as documented Constitutional Constitutional: Denies chills and Denies fever(s) Eyes Eyes: Denies eye discharge ENT Ears, Nose, Mouth, and Throat: Denies dizziness, Denies otalgia and Denies sore throat Cardiovascular Cardiovascular: Denies chest pain Respiratory Respiratory: Denies shortness of breath, Denies chest congestion, Denies cough, Denies stridor and Denies wheezing Gastrointestinal Gastrointestingal: Denies nausea or vomiting Musculoskeletal Musculoskeletal: Reports as per HPI Integumentary/Breasts Skin/Breast: Denies rash Neurologic Neurologic: Denies dizziness and Denies paresthesias Allergic/Immunologic Allergic/Immunologic: Denies wheezing Physical Exam General General appearance: alert and in no apparent distress Head Head exam: atraumatic, normocephalic and normal inspection Eye Eye exam: Present normal appearance, PERRL and EOMI ENT ENT exam: Present normal exam, normal oropharynx, mucous membranes moist, TM's normal bilaterally and normal external ear exam Neck Neck exam: Present normal inspection, full ROM and trachea midline; Absent meningismus or lymphadenopathy Chest Chest inspection: Present normal inspection and symmetric chest wall rise; Absent tenderness Respiratory Respiratory exam: Present normal lung sounds bilaterally; Absent respiratory dis tress Cardiovascular Cardiovascular exam: Present regular rate and normal rhythm; Absent JVD Abdominal Exam Abdominal exam: Present soft and normal bowel sounds; Absent distention, tenderness or guarding Extremities Exam Extremities exam: Present normal capillary refill; Absent calf tenderness Expanded Lower Extremity Exam Right: Hip/Pelvis exam: Present normal inspection, full ROM and pelvis stable; Absent tenderness Upper leg exam: Present normal inspection and full ROM; Absent tenderness Knee exam: Present tenderness, swelling and knee extension intact; Absent full ROM, abrasion, laceration, ecchymosis, deformity, crepitus, dislocation, erythema, effusion, anterior drawer sign, posterior draw sign, pain with valgus, laxity with valgus, pain with varus or laxity with varus Lower leg exam: Present normal inspection, full ROM and Achilles tendon i ntact; Absent tenderness or Homans' sign Ankle exam: Present normal inspection and full ROM; Absent tenderness Foot/toe exam: Present normal inspection and full ROM; Absent tenderness Neurovascular/Tendon exam: Present normal capillary refill, normal 2-point discrimination and normal fine/light touch; Absent pulse deficit, motor deficit, sensory deficit, tendon deficit, extremity cold to touch or pallor Gait: observed and limited by pain Back Exam Back exam: Present normal inspection; Absent tenderness Neurological Exam Neurological exam: Present alert and oriented X3 Psychiatric Psychiatric exam: Present normal affect and normal mood Skin Skin exam: Present warm, dry, intact and normal color Lymphatic Lymphatic Findings: no adenopathy Medical Decision Making Medical Records Screening: Per USPSTF and CDC recommendations, given the prevalence of disease in our region, it is our hospital?s policy to screen for HIV and viral Hepatitis for all patients aged 18 and over and those with ongoing risk factors. Orestes Inquiry Pt receiving controlled substance: No
--- NOTE | 2024-06-27 15:18 | XR_ITS ---
FINAL REPORT CLINICAL HISTORY: right knee pain, no injury FINDINGS: Right knee Three views were obtained. There is no acute fracture or dislocation. There is moderate medial compartment joint space narrowing. There is patellofemoral joint space narrowing. Osteophytes are seen along the undersurface of the patella. No soft tissue abnormality is identified. IMPRESSION: Moderate changes of osteoarthritis. Reviewed, Interpreted and Dictated by Westley Warren MD Transcribed by Carmen Purcell Authenticated and [facility]
[2024-06-27 16:57] VITALS: BP 159/81; PULSE 71; RESP 16; TEMP 36.6; O2SAT 98
== END 2024-06-27 16:58 | disposition home or self-care (01) ==
PROVIDERS: Emergency Provider Nurse Practitioner Family; PCP Family Medicine
DX: M25.561 Pain in right knee (principal); M17.11 Unilateral primary osteoarthritis, right knee
CPT/HCPCS: 73562; 99204; 99212; G0463

== ENCOUNTER 2024-10-14 15:43 | Emergency (ER) | payer MEDICARE, OTHER, SELFPAY ==
[2024-10-14 16:50] VITALS: BP 182/80; PULSE 60; RESP 24; TEMP 37.6; O2SAT 95; BMI 38.9
--- NOTE | 2024-10-14 17:39 | ED_ITS ---
Discharge Plan Disposition Patient Disposition: Home, Self-Care Condition: Good Prescriptions Prescriptions: New benzonatate 100 mg capsule 100 mg PO TID PRN (Reason: cough) Qty: 30 0RF No Action furosemide 40 mg tablet 40 mg PO DAILY oxybutynin chloride 10 mg tablet extended release 24hr 10 mg PO DAILY Patient Comments: TAKE 1 TABLET BY MOUTH ONCE DAILY DO NOT CRUSH, CHEW, OR SPLIT meloxicam 15 mg tablet 15 mg PO DAILY Patient Comments: TAKE 1 TABLET BY MOUTH ONCE DAILY omeprazole 40 mg capsule,delayed release(DR/EC) 40 mg PO DAILY Patient Comments: TAKE 1 CAPSULE BY MOUTH ONCE DAILY (DO NOT CRUSH OR CHEW) amlodipine 10 mg tablet 10 mg PO DAILY Patient Comments: TAKE 1 TABLET BY MOUTH ONCE DAILY metformin 1,000 mg tablet 1,000 mg PO Q12H Patient Comments: TAKE 1 TABLET BY MOUTH EVERY 12 HOURS (NEEDS LABS DONE FOR FURTHER REFILLS) montelukast 10 mg tablet 10 mg PO HS Patient Comments: TAKE 1 TABLET BY MOUTH ONCE DAILY AT NIGHT azelastine 137 mcg (0.1 %) spray,non-aerosol 1 spray INTRANASAL BID Patient Comments: USE 1 TO 2 SPRAY(S) IN EACH NOSTRIL TWICE DAILY fluticasone propionate 50 mcg/actuation spray,suspension 2 spray INTRANASAL DAILY Patient Comments: USE 2 SPRAY(S) IN EACH NOSTRIL ONCE DAILY SHAKE GENTLY, BEFORE FIRST USE, PRIME PUMP. AFTER USE, CLEAN TIP AND REPLACE CAP rosuvastatin 10 mg tablet 10 mg PO DAILY Patient Comments: TAKE 1 TABLET BY MOUTH ONCE DAILY topiramate 50 mg tablet 50 mg PO BID Patient Comments: TAKE 1 TABLET BY MOUTH TWICE DAILY levocetirizine 5 mg tablet 5 mg PO DAILY Referrals Follow up/Referrals: Ruth Martines [Primary Care Provider] - See instructions Activity Restrictions/Add. Instructions Additional Instructions/Restrictions: * Too late to start Tamiflu. Most effective when started within 48 hours of symptoms onset * Lots of rest * Increase Fluids water, Gatorade, powerade, pedialyte,if /toddler/child * Alternate Tylenol and / or ibuprofen as discussed for fever, aches, chills Follow up IMMEDIATELY with your family doctor for new or worsening Symptoms OR no noticeable improvement over the next 48-72 hours, 911 for difficulty or breathing * You or your child area contagious until no fever, aches, chills for 24 hours with medication for symptoms * Help Prevent the spread of influenza: * ?Wash your hands often. Use soap and water. Wash your hands after you use the bathroom, change a child's diapers, or sneeze. Wash your hands before you prepare or eat food. Use gel hand cleanser that has 60% alcohol, when soap and water are not available. Do not touch your eyes, nose, or mouth unless you have washed your hands first. * Cover your mouth when you sneeze or cough. Cough into a tissue or the bend of your arm. If you use a tissue, throw it away immediately and wash your hands. * Clean shared items with a germ-killing dry cleaner hand. Clean table surfaces, doorknobs, and light switches. Do not share towels, silverware, and dishes with people who are sick. Wash bed sheets, towels, silverware, and dishes with soap and water. * Wear a mask over your mouth and nose if you are sick. The face mask may help protect others from becoming infected with the flu. Wear the mask when in common areas of your home or if you seek care with a healthcare provider. * Stay away from others if you are sick. Stay at home until 24 hours after your fever and symptoms are gone. Clinical Impressions Clinical Impression: Influenza Instructions Patient Instructions: DI for Influenza -- Adult, Influenza Print Language Print Language: Georgian Discharge ED Provider: Era Marcial [facility] [place] HPI General Stated complaint: cough, runny nose, nausea, headache Mode of Arrival: Ambulatory Source of Information: Patient Limitations: No Limitations Time Seen by Provider: 10/14/24 17:39 Description of Symptoms (Recalled from Triage Doc. by RN): PATIENT C/O COUGH, RUNNY NOSE, NAUSEA, AND HEADACHE FOR APPROX 3 WEEKS HEENT Symptoms (Recalled from RN notes): Yes Resp Symptoms (Recalled from RN notes): Yes Skin Symptoms (Recalled from RN notes): No MS Symptoms (Recalled from RN notes): No Functional Status (Recalled from RN notes): WNL History of Present Illness Provider Complaint: Patient states that he initially was sick before [place] with sinus congestion, pressure and cough then he started feeling a little better but then it came back a few days ago States that he is having sinus headache and cough and the headache is worse when he has a coughing episode States today he was still having symptoms so he came in to get checked Related Data Home Medications ?Medication ?Instructions ?Recorded ?Confirmed amlodipine 10 mg tablet 10 mg PO DAILY 10/14/24 10/14/24 azelastine 137 mcg (0.1 %) nasal 1 spray intranasal BID 10/14/24 10/14/24 spray fluticasone propionate 50 2 spray intranasal DAILY 10/14/24 10/14/24 mcg/actuation nasal spray,suspension furosemide 40 mg tablet 40 mg PO DAILY 10/14/24 10/14/24 levocetirizine 5 mg tablet 5 mg PO DAILY 10/14/24 10/14/24 meloxicam 15 mg tablet 15 mg PO DAILY 10/14/24 10/14/24 metformin 1,000 mg tablet 1,000 mg PO Q12H 10/14/24 10/14/24 montelukast 10 mg tablet 10 mg PO HS 10/14/24 10/14/24 omeprazole 40 mg capsule,delayed 40 mg PO DAILY 10/14/24 10/14/24 release oxybutynin chloride 10 mg 10 mg PO DAILY 10/14/24 10/14/24 tablet,extended release 24 hr rosuvastatin 10 mg tablet 10 mg PO DAILY 10/14/24 10/14/24 topiramate 50 mg tablet 50 mg PO BID 10/14/24 10/14/24 Previous Rx's ?Medication ?Instructions ?Recorded benzonatate 100 mg capsule 100 mg PO TID PRN cough #30 caps 10/14/24 Allergies Allergy/AdvReac Type Severity Reaction Status Date / Time codeine (CODEINE) Allergy Unknown Verified 04/06/24 09:25 lisinopril AdvReac Mild cough Verified 04/06/24 09:25 Worker's Comp Is this a Worker's Comp case?: No [facility] Disclaimer: The information contained in this section may have been updated after the patient was seen, as this information can be updated by other users. Medical History Hypertension Hyperlipidemia History of left heart catheterization (LHC) Surgical History H/O vasectomy H/O wrist replacement History of tonsillectomy History of colonoscopy Family History Other No significant family history Social History Smoking Status: Never smoker alcohol intake: current alcohol intake frequency: a few times a week substance use type: denies use current occupational status: retired Travel in the last 8 weeks: None Have you lived/traveled outside [place] in past 30 days?: No Contact w/someone who lives/traveled outside [place] past 30 days?: No Exposure to someone with infectious disease in past 14 days?: No Do you have a fever (greater than 100.4 F or 38 C)?: No Have you tested positive for COVID-19: No Exposed to someone with COVID-19 in past 14 days?: No Do you have a sore throat?: No Do you have a cough?: Yes Do you have any weakness?: No Do you have any diarrhea?: No Are you experiencing any unusual bleeding?: No Do you have any muscle aches/pain?: No Do you have any abdominal pain?: No Are you experiencing loss of taste or smell?: No ROS Obtained: Yes All systems reviewed & no additional complaints except as documented and Yes Systems reviewed as appropriate & no additional complaints except as documented Constitutional Constitutional: Reports system reviewed and no additional complaints, except as documented, Reports as per HPI, Reports body ache, Reports chills, Reports fever(s) and Reports headache(s) ENT Ears, Nose, Mouth, and Throat: Reports system reviewed and no additional complaints, except as documented, Reports as per HPI, Reports headache(s), Reports sinus pain and Reports sinus pressure Cardiovascular Cardiovascular: Reports system reviewed and no additional complaints, except as documented and Reports as per HPI Respiratory Respiratory: Reports system reviewed and no additional complaints, except as documented, Reports as per HPI, Denies shortness of breath, Reports chest congestion, Reports cough and Denies wheezing Gastrointestinal Gastrointestingal: Reports system reviewed and no additional complaints, except as documented and as per HPI Neurologic Neurologic: Reports headache(s) Allergic/Immunologic Allergic/Immunologic: Denies wheezing Physical Exam General General appearance: alert and in no apparent distress ENT ENT exam: Present mucous membranes moist Expanded ENT Exam Nose exam: Present sinus tenderness Throat exam: Present other (PND noted) Respiratory Respiratory exam: Present normal lung sounds bilaterally; Absent respiratory distress or wheezes Cardiovascular Cardiovascular exam: Present regular rate, normal rhythm and normal heart sounds Abdominal Exam Abdominal exam: Present soft and normal bowel sounds; Absent distention or tenderness Neurological Exam Neurological exam: Present alert, oriented X3 and normal gait Medical Decision Making Medical Records Screening: Per USPSTF and CDC recommendations, given the prevalence of disease in our region, it is our hospital?s policy to screen for HIV and viral Hepatitis for all patients aged 18 and over and those with ongoing risk factors. Orestes Inquiry Pt receiving controlled substance: No Orestes was queried for this patient: No Vital Signs: 10/14/24 16:50 Temperature 99.6 F Temperature Source Oral Pulse Rate [Left Brachial] 60 Respiratory Rate 24 Blood Pressure [Left Arm] 182/80 H Blood Pressure Mean [Left Arm] 114 Blood Pressure Source [Left Arm] Automatic Cuff Blood Pressure Position [Left Arm] Sitting 02 Sat by Pulse Oximetry 95 Oxygen Delivery Method Room Air Lab Data Lab results reviewed: Yes I reviewed the patient's lab results.
[2024-10-14 17:53] LABS: UTC Influenza A Antigen Positive (Negative)
[2024-10-14 17:54] LABS: UTC Influenza B Antigen Negative (Negative)
[2024-10-14 18:00] VITALS: BP 182/80; PULSE 60; RESP 24; TEMP 37.6; O2SAT 95
== END 2024-10-14 18:02 | disposition home or self-care (01) ==
PROVIDERS: Emergency Provider Nurse Practitioner; PCP Family Medicine
DX: J11.1 Influenza due to unidentified influenza virus with other respiratory manifestations (principal)
CPT/HCPCS: 87804; 99213; G0381